=== PATIENT | female | born 2000 | race Caucasian/White ===

== ENCOUNTER 2020-06-23 12:45 | Outpatient (CLI) | payer OTHER, SELFPAY ==
--- NOTE | ~2020-06-23 | US_ITS ---
EXAMINATION: US pelvic complete w TV DATE: 06/23/2020 13:55 INDICATION: Pelvic pain during menstruation Comparison:No prior studies for comparison. TECHNIQUE: Multiple transabdominal and endovaginal sonographic images of the pelvis performed. FINDINGS: The uterus measures 8.4 x 4.4 x 5.5 cm. Uterus is retroverted. The endometrial complex domenico ures 12 mm. The right ovary measures 7.3 x 4.6 x 6.8 cm and the left ovary measures 3 x 2.1 x 3.6 cm. There is a small amount of free fluid in the pelvis. The right ovary there are 2 hypoechoic masses, largest domenico uring 4.6 x 4.1 x 3.9 cm, likely hemorrhagic cyst. Smaller mass measures 3.1 x 2 x 2.5 cm, also likel y hemorrhagic cyst. IMPRESSION: 1. Multiple right ovarian masses, both containing low level internal echoes, most likely hemorrhagic cysts. The largest measures 4.6 cm greatest dimension. Consider follow-up ultrasound in 4-6 weeks to assess for resolution. 2: Mild endometrial thickening. Reviewed, dictated and finalized at location A. LOCK OPERATOR IMPRESSION: 1. Multiple right ovarian masses, both containing low level internal echoes, mo st likely hemorrhagic cysts. The largest measures 4.6 cm greatest dimension. Co nsider follow-up ultrasound in 4-6 weeks to assess for resolution. 2: Mild endometrial thickening.
== END 2020-06-23 12:46 ==
PROVIDERS: Visit Provider Physician Assistant
DX: N83.9 Noninflammatory disorder of ovary, fallopian tube and broad ligament, unspecified (principal)
CPT/HCPCS: 76830; 76856

== ENCOUNTER 2020-07-06 20:18 | Emergency (ER) | payer OTHER, SELFPAY ==
[2020-07-06] VITALS (12 sets, daily range): BP systolic 102–104; BP diastolic 57–72; PULSE 66–76; RESP 20; TEMP 36.7; O2SAT 95–100
[2020-07-06 20:33] LABS: Basophils Percent Auto 0.4 % (0.2-1.2); Eosinophils Absolute Auto 0.1 K/mm3 (0-0.3); Eosinophils Percent Auto 1.2 % (0-4.4); Hematocrit 34.6 % (37.0-47.0); Hemoglobin 11.5 g/dL (12.0-15.0); Immature Granulocyte Absolute 0.02 K/mm3 (0.00-0.031); Immature Granulocyte Percent A 0.3 % (0-0.5); Lymphocytes Absolute Auto 2.79 K/mm3 (0.9-3.2); Lymphocytes Percent Auto 36.3 % (18.3-44.2); Mean Corpuscular HGB Conc 33.2 g/dl (32-36); Mean Corpuscular Hemoglobin 29.6 pg (26-34); Mean Corpuscular Volume 89.2 fl (80-100); Mean Platelet Volume 9.4 fl (7.4-10.4); Monocytes Absolute Auto 0.4 K/mm3 (0.1-0.6); Monocytes Percent Auto 4.6 % (2.6-8.5); Neutrophils Absolute Auto 4.4 K/mm3 (1.3-6.7); Neutrophils Percent Auto 57.2 % (45.5-73.1); Platelet Count Result 292 k/mm3 (150-375); Red Blood Count 3.88 M/mm3 (4.2-5.4); White Blood Count 7.7 K/mm3 (4.5-10.0)
--- NOTE | 2020-07-06 20:35 | ED.ABDPAIN ---
HPI - Abdominal Pain General Chief Complaint: Abdominal Pain Stated Complaint: vomiting and abd pain after sex Time Seen by Provider: 07/06/20 20:32 History of Present Illness HPI narrative: 19 yo female presents to the ED for abdominal pain. TThe pain started immediately following sex. It is severe. Located in the right ovary . No radiation. Associated with nausea. She has had this pain before and was told that it was probably an ovarian cyst. She has not tried anything for the pain. No diarrhea, constipation, dysuria, vaginal discharge. She is currently on her period. She had a recent ultrasound done for this pain and has not gotten the results. Related Data Allergies Allergy/AdvReac Type Severity Reaction Status Date / Time No Known Allergies Allergy Verified 07/06/20 20:21 Review of Systems Review of Systems: All systems reviewed & are unremarkable except as noted in HPI and below Constitutional: Constitutional: Denies chills and Denies fever(s) Cardiovascular: Cardiovascular: Denies chest pain Respiratory: Respiratory: Denies dyspnea Gastrointestinal: Gastrointestinal: Reports abdominal pain, Denies constipation, Denies diarrhea, Reports nausea and Denies vomiting Genitourinary: Genitourinary: Denies dysuria and Denies vaginal discharge Musculoskeletal: Musculoskeletal: Denies back pain Neurologic: Reports headache(s), Denies numbness and Denies weakness PMFSH Past Medical History Medical History (Updated 07/11/20 @ 02:41 by Kuldeep Pastrana MD) Healthy adult Social History Social History (Updated 07/11/20 @ 02:41 by Kuldeep Pastrana MD) Gender identity (if verbalized by the patient): Female Sexual Orientation (if Verbalized by the Patient): Straight or Heterosexual Exam Const: General: healthy appearing, no acute distress and alert Nutritional Appearance: well nourished Orientation/consciousness: patient oriented x3 HENMT: Head: normal to inspection Neck: Neck: normal visual inspection Resp: Effort & Inspection: normal respiratory effort Auscultation: clear to auscultation bilaterally Cardio: Rate: regular rate Rhythm: regular rhythm GI: Inspection: non-distended GI Palp: Yes Soft to palpation, Yes Tenderness to palpation present (GI) (periumbilical and suprapubic), Yes Guarding due to palpation present (GI) and No Rebound tenderness present Skin: General skin exam: normal color Neuro: General: patient oriented x3, moves all extremities and CN's II-XI intact bilaterally Speech: normal speech Gait exam (Neuro): Normal gait present Extrem: General: normal to inspection and no edema Psych: Appearance: grossly normal and well kempt Mental Status: mental status grossly normal Course Vital Signs Vital signs: Vital Signs Temperature 36.7 C 07/06/20 20:48 Pulse Rate 66 07/06/20 20:48 Respiratory Rate 20 07/06/20 20:48 Blood Pressure 103/57 L 07/06/20 20:48 Pulse Oximetry 100 07/06/20 20:48 Temperature 36.7 C 07/06/20 20:48 Pulse Rate 76 07/06/20 21:12 Respiratory Rate 20 07/06/20 20:48 Blood Pressure 102/60 07/06/20 23:01 Pulse Oximetry 95 07/06/20 23:01 MDM - Abdominal Pain MDM Narrative Medical decision making narrative: She likely ruptured a cyst during sex. Vitals stable. Pain improving. No concern for significant hemorrhage. Differential Diagnosis Differential diagnosis: Likely acute appendicitis, calculus of kidney, pancreatitis and other (uti, ovarian cyst) Medical Records Attestation: I reviewed the patient's medical records. Lab Data Attestation: I reviewed the patient's lab results. Result diagrams: 07/06/20 20:28 07/06/20 20:28 Labs: Lab Results 07/06/20 07/06/20 Range/Units 20:28 20:28 WBC 7.7 (4.5-10.0) K/mm3 RBC 3.88 L (4.2-5.4) M/mm3 Hgb 11.5 L (12.0-15.0) g/dL Hct 34.6 L (37.0-47.0) % MCV 89.2 (80-100) fl MCH 29.6 (26-34) pg MCHC 33.2 (32-36) g/dl R
[2020-07-06 20:46] LABS: Alanine Aminotransferase 10 U/L (4-35); Albumin Level 4.5 g/dL (3.7-5.6); Alkaline Phosphatase 45 U/L (45-116); Anion Gap 11 mmol/L (8-16); Aspartate Amino Transferase 24 U/L (14-36); Bilirubin,Total 0.3 mg/dL (0.2-1.3); Blood Urea Nitrogen 13 mg/dL (8-21); Calcium 9.7 mg/dL (8.9-10.7); Carbon Dioxide 26 mmol/L (22-30); Chloride 104 mmol/L (98-107); Estimated Glomerular Filt Rate > 60; Glucose 106 mg/dL (65-105); Lipase 68 U/L (23-300); Potassium 4.1 mmol/L (3.4-5.0); Sodium 141 mmol/L (134-143)
[2020-07-06] MEDS: KETOROLAC 30 MG/ML VIAL (*BKC) IV PUSH (21:27)
[2020-07-06] MEDS: MORPHINE SULFATE (*CRX) 2 MG/ML INJ IV PUSH (21:27)
== END 2020-07-06 23:19 | disposition home or self-care (01) ==
PROVIDERS: Emergency Medicine; Emergency Provider Emergency Medicine
DX: N83.201 Unspecified ovarian cyst, right side (principal)
CPT/HCPCS: 36415; 80053; 83690; 85025; 96374; 96375; 99284; J1885; J2270

== ENCOUNTER 2020-11-03 14:50 | Outpatient (CLI) | payer OTHER, SELFPAY ==
--- NOTE | ~2020-11-03 | US_ITS ---
EXAMINATION: US pelvic complete w TV DATE: 11/03/2020 15:24 INDICATION: Right adnexal mass TECHNIQUE: Multiple transabdominal and endovaginal sonographic images of the pelvis were obtained. COMPARISON: 06/23/2020 FINDINGS: The uterus measures 8.1 x 4.0 x 4.3 cm. The endometrial complex measures 7 mm. The right ov pam measures 5.2 x 5.4 x 4.7 cm. There is a stable 4.6 x 3.4 cm homogeneous right adnexal mass with l ow-level internal echoes. A second mass with similar sonographic features described on the comparison ultrasound is no longer identified. The left ovary measures 2.8 x 3.7 x 2.7 cm. There is normal vasc ular flow in the ovaries. There is no free fluid in the pelvis. IMPRESSION: 1. Stable 4.6 cm right adnexal mass with sonographic features suggestive of an endometrioma. Recommen dation is for follow-up ultrasound in one year if not surgically removed. Reviewed, dictated and finalized at location A. IMPRESSION: 1. Stable 4.6 cm right adnexal mass with sonographic features suggestive of an endometrioma. Recommendation is for follow-up ultrasound in one year if not laure gically removed.
== END 2020-11-03 14:51 | disposition home or self-care (01) ==
PROVIDERS: PCP Physician Assistant; Visit Provider Physician Assistant
DX: N83.201 Unspecified ovarian cyst, right side (principal); N83.9 Noninflammatory disorder of ovary, fallopian tube and broad ligament, unspecified
CPT/HCPCS: 76830; 76856

== ENCOUNTER 2021-02-07 12:04 | Emergency (ER) | payer OTHER, SELFPAY ==
[2021-02-07 12:08] VITALS: BP 103/70; PULSE 80; RESP 18; TEMP 36.6; O2SAT 99
--- NOTE | 2021-02-07 12:58 | ED.FEMALEGU ---
HPI - Female Genitourinary General Chief complaint: Urogenital-Female Stated complaint: endometriosis is causing something to come out of Time Seen by Provider: 02/07/21 12:08 History of Present Illness HPI Narrative: Patient is a 20-year-old female who presents ER with concerns for uterine prolapse. Reports she has had a couple episodes where something is falling out of her vagina and she has to push it back up. Occasionally this will help her urinate. No urinary frequency urgency or dysuria. Occasionally has some vaginal spotting since getting her Depo shot recently. Reports some mild discharge but no significant increase. No fevers or chills or sweats. No pelvic pain. Patient does have history of endometriosis and reports a large endometrial tumor on her right ovary. Related Data Home Medications Medication Instructions Recorded Confirmed terbinafine HCl 250 mg PO 02/07/21 Allergies Allergy/AdvReac Type Severity Reaction Status Date / Time No Known Allergies Allergy Verified 02/07/21 12:18 Review of Systems Review of Systems: All systems reviewed & are unremarkable except as noted in HPI and below Constitutional: Constitutional: Denies chills and Denies fatigue Gastrointestinal: Gastrointestinal: Denies abdominal pain, Denies nausea and Denies vomiting Genitourinary: Genitourinary: Reports abnormal vaginal bleeding, Denies nocturia, Denies dysuria, Denies pelvic pain and Reports vaginal discharge PMFSH Past Medical History Medical History (Updated 02/07/21 @ 13:24 by Clark Mercedes MD) Healthy adult Social History Social History (Updated 07/11/20 @ 02:41 by Kuldeep Pastrana MD) Gender identity (if verbalized by the patient): Female Exam Narrative: Exam Narrative: GENERAL: Well-appearing, well-nourished, and in no acute distress. HEAD: Normocephalic, atraumatic. CHEST: Clear to auscultation. No respiratory distress. HEART: Regular rate and rhythm. Normal peripheral pulses. ABDOMEN: Soft, nontender, nondistended. : Normal external genitalia. Speculum exam reveals retained tampon. After evacuation cervix appears mildly irritated but no additional discharge or bleeding. EXTREMITIES: Normal range of motion. No edema. SKIN: Warm, dry, no rash. NEURO: Alert and oriented x3. PSYCH: Normal mood and affect. Course Course Emergency Course: Patient resting comfortably. Tampon removed from vagina. Discharge home. Patient reports she has an appointment with Dr. Shukla to establish care with gynecology in the near future. Vital Signs Vital signs: Vital Signs Temperature 97.9 F 02/07/21 12:08 Pulse Rate 80 02/07/21 12:08 Respiratory Rate 18 02/07/21 12:08 Blood Pressure 103/70 02/07/21 12:08 Pulse Oximetry 99 02/07/21 12:08 Temperature 97.9 F 02/07/21 12:08 Pulse Rate 80 02/07/21 12:08 Respiratory Rate 18 02/07/21 12:08 Blood Pressure 103/70 02/07/21 12:08 Pulse Oximetry 99 02/07/21 12:08 Discharge Plan Discharge Clinical Impression: Retained tampon Patient Disposition: Home, Self-Care Condition: Stable Instructions: Vaginal Discharge (ED) Additional Instructions: You are being started on metronidazole for potential bacterial vaginosis related to retained tampon. Return to the ER if you have worsening pelvic pain, you develop fever over 100.4 ?F, you have additional concerns. Prescriptions: New metronidazole 500 mg tablet 500 mg PO Q12H Qty: 14 RF: 0 No Action terbinafine HCl 250 mg tablet 250 mg PO RF: 0 Follow-up/Referrals: Ally Shukla MD [Physician] - 1 Week UNKNOWN,DOCTOR [Primary Care Provider] -
[2021-02-07 13:34] VITALS: BP 107/68; PULSE 79; RESP 17; O2SAT 99
== END 2021-02-07 13:35 | disposition home or self-care (01) ==
PROVIDERS: Emergency Provider Emergency Medicine
DX: T19.2XXA Foreign body in vulva and vagina, initial encounter (principal)
CPT/HCPCS: 99283

== ENCOUNTER 2021-09-08 18:55 | Emergency (ER) | payer OTHER, SELFPAY ==
--- NOTE | 2021-09-08 18:58 | ED.EYEPROB ---
HPI - Eye Problem General Chief complaint: Eye Problems Stated complaint: right eye Time Seen by Provider: 09/08/21 18:59 Source: patient, RN notes reviewed and old records reviewed Mode of arrival: ambulatory Limitations: no limitations History of Present Illness HPI Narrative: 20-year-old female presents to the [facility] with complaints of right eye pain and swelling to the Upper lid. States the discomfort started last night. No change in vision or blurry vision. Denies headaches. Swelling noted to the right upper eyelid MD chief complaint: eye pain and eye redness Related Data Home Medications Medication Instructions Recorded Confirmed medroxyprogesterone mg IM 09/08/21 Allergies Allergy/AdvReac Type Severity Reaction Status Date / Time No Known Allergies Allergy Verified 02/07/21 12:18 Review of Systems Review of Systems: All systems reviewed & are unremarkable except as noted in HPI and below Constitutional: Constitutional: Reports no additional constitutional complaints, Denies chills and Denies fever(s) Eyes: Eyes: Reports as per HPI, Denies change in vision, Denies diplopia, Denies itchy eyes, Denies loss of vision, Reports requires corrective lenses (wear glasses) and Denies photophobia ENT: Reports system reviewed and no additional complaints, except as documented Cardiovascular: Cardiovascular: Reports no additional cardiovascular complaints Respiratory: Respiratory: Reports no additional respiratory complaints Gastrointestinal: Gastrointestinal: Reports no additional gastrointestinal complaints Musculoskeletal: Musculoskeletal: Reports no additional musculoskeletal complaints Integumentary/Breasts: Skin/Breast: Reports system reviewed and no additional complaints, except as docu Neurologic: Reports system reviewed and no additional complaints, except as documented Psychiatric: Psychiatric: Reports no additional psychiatric complaints Allergic/Immunologic: Allergic/Immunologic: Reports no additional allergic/immunologic complaints [facility] Past Medical History Medical History Healthy adult Social History Social History Gender identity (if verbalized by the patient): Female Sexual Orientation (if Verbalized by the Patient): Straight or Heterosexual Comments At the time of my signature, I reviewed and agree with the nursing past medical, surgical, social, and family history. There is no relevant family history pertinent to the patient complaint. Exam Const: General: healthy appearing, no acute distress and alert Nutritional Appearance: well nourished Orientation/consciousness: patient oriented x3 Limitations: no limitations HENMT: Head: normal to inspection Ears: external ears normal Eyes: Conjunctivae: conjunctival abnormality right conjunctival injection (right upper lateral with stye); without discharge Pupils: Equal, round and reactive pupils present Direct Ophthalmoscopy: no photophobia Neck: Neck: normal visual inspection, no lymphadenopathy and no meningeal signs Chest: Chest palpation & inspection: normal inspection of the chest Resp: Effort & Inspection: normal respiratory effort and no use of accessory muscles Auscultation: clear to auscultation bilaterally, no crackles, no rales, no rhonchi and no wheezes Cardio: Rate: regular rate Rhythm: regular rhythm Skin: General skin exam: normal color Rashes: no rashes Wounds: no wounds Neuro: General: patient oriented x3, moves all extremities, no meningeal signs and no focal motor deficits Speech: normal speech Gait exam (Neuro): Normal gait present Extrem: General: normal to inspection Psych: Appearance: grossly normal and well kempt Mental Status: mental status grossly normal Affect: normal affect Attitude: cooperative Thought content: Yes Normal thought content present Course Course Emergency Course: Dischar
[2021-09-08 19:00] VITALS: BP 101/57; PULSE 69; RESP 16; TEMP 36.8; O2SAT 100
== END 2021-09-08 19:11 | disposition home or self-care (01) ==
PROVIDERS: Emergency Provider Nurse Practitioner
DX: H00.011 Hordeolum externum right upper eyelid (principal); N80.9 Endometriosis, unspecified
CPT/HCPCS: 99213; G0463

== ENCOUNTER 2021-10-26 09:42 | Outpatient (CLI) | payer OTHER, SELFPAY ==
--- NOTE | ~2021-10-26 | US_ITS ---
EXAMINATION: US abdomen complete DATE: 10/26/2021 10:32 INDICATION: Abdominal pain TECHNIQUE: Multiple grayscale and Doppler ultrasound images of the abdomen were obtained. COMPARISON: The pancreatic head and body are normal in appearance. The pancreatic tail is not visual ized. Abdominal aorta is normal. The visualized proximal to mid inferior vena cava is normal. Liver h as normal echogenicity and contour, with a smooth surface. No liver lesion identified. No intrahepati c biliary duct dilation suspected. Portal venous flow was seen in the hepatopetal, normal direction a nd has normal Doppler waveform. The gallbladder is normal in appearance. There is no cholelithiasis. The common bile duct measures 3 mm, which is normal. Sonographic Avery sign was reported as negativ e by the roustabout pusher. There is normal renal contour and echogenicity bilaterally. The right kidney me asures 11.3 x 4.6 x 4.0 cm and the left 11.9 x 5.5 x 4.4 cm. There are no focal renal lesions identi fied. There is no hydronephrosis. Normal spleen measuring 10.3 cm maximal length. FINDINGS: Normal abdominal ultrasound. IMPRESSION: 1. Reviewed, dictated and finalized at location A. IMPRESSION: 1.
--- NOTE | ~2021-10-26 | XR_ITS ---
EXAMINATION: XR knee RT 3V DATE: 10/26/2021 10:07 INDICATION: Right knee pain. TECHNIQUE: 3 views of right knee including standing views were obtained. COMPARISON: Right tibia and fibula radiographs 12/25/2016 FINDINGS: Bone alignment is normal. No fracture. Joint spaces are well maintained. There is no knee j oint effusion. IMPRESSION: 1. Normal right knee. Reviewed, dictated and finalized at location A. IMPRESSION: 1. Normal right knee.
--- NOTE | ~2021-10-26 | XR_ITS ---
EXAMINATION: XR shoulder RT min 2V DATE: 10/26/2021 10:07 INDICATION: Right shoulder pain. TECHNIQUE: 4 views of right shoulder were obtained. COMPARISON: None. FINDINGS: Bone alignment is normal. No fracture. Joint spaces are well maintained. IMPRESSION: 1. Normal right shoulder. Reviewed, dictated and finalized at location A. IMPRESSION: 1. Normal right shoulder.
== END 2021-10-26 09:43 | disposition home or self-care (01) ==
LOC: ANHIMG 09:46
PROVIDERS: PCP Physician Assistant; Visit Provider Physician Assistant
DX: R10.9 Unspecified abdominal pain (principal); M25.569 Pain in unspecified knee; M25.511 Pain in right shoulder
CPT/HCPCS: 73030; 73562; 76700

== ENCOUNTER 2021-12-08 10:45 | Outpatient (RCR) | payer OTHER, SELFPAY ==
--- NOTE | 2021-10-21 10:03 | PTOPEVAL ---
PHYSICAL THERAPY EVALUATION AND PLAN OF CARE Thank you for referring Dina Pemberton to [facility].? The patient is scheduled to be seen for therapy? 2x/week for 3 weeks. Please review, sign, date and return this plan of care CRUZITO. I agree with and certify that the following plan of care is medically necessary. Referring Physician Date Attending Provider: Samantha Tolbert, PA Evaluation Diagnosis right knee pain, right shoulder pain Onset 5 years Subjective Information States that she has been Query Text:As Reported By Patient/ dealing with right knee pain Family for at least 5 years and it hurts daily and will sometimes give out. 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 Started about 7-8 months ago. States she does get headaches with shoulder pain - will wake up with sore shoulder blades and middle back and it will go up to her neck Self Report Pain Assessment Right Knee(s) Reported Pain Level 2 Radicular Pain Location irritated Pain Frequency Chronic,Continuous Lowest Pain Intensity 2 Greatest Pain Intensity 6 Pain Aggravating Factors Walking,Weight Bearing/ Standing Pain Behaviors None Right Shoulder(s) Reported Pain Level 6 Pain Description Aching,Tightness Lowest Pain Intensity 0 Greatest Pain Intensity 7 Pain Aggravating Factors Lifting Pain Score Pain Score 6,2: Self Report Interventions Used Interventions Used By Clinicians Exercise,Mobilization Other Alleviating Interventions icy hot Upper Extremity Range of Motion Scapular/ Shoulder Range of Motion Right Shoulder Flexion - Active 152 Shoulder Abduction - Active 155 Shoulder Medial Rotation - Active T6 Query Text:Reach Behind the Back Scapular/Shoulder Range of Motion pain at end range motion, no Comments painful arc; ligament laxity noted Lower Extremity Range of Motion General Lower Extremity Range of Motion Reason Not Measured WNL/Left,WNL/Right Gross Lower Extremity Range of Motion ligament laxity noted Comments Lower Extremity Muscle Strengt
--- NOTE | 2021-11-12 16:23 | PTOPEVAL ---
PHYSICAL THERAPY PROGRESS REPORT Thank you for referring Dina Pemberton to [facility].? The patient is scheduled to be seen for therapy? 1x/week for 4 weeks. Please review, sign, date and return this plan of care CRUZITO. I agree with and certify that the following plan of care is medically necessary. Referring Physician Date Attending Provider: Samantha Tolbert, PA Diagnosis right knee pain, right shoulder pain Onset 5 years Subjective Information Throughout the whole process Query Text:As Reported By Patient/ she states that the shoulder Family is improving and does have a small amount of pain today. The last several days the right knee has really been bothering her. It does tend to have flair ups and she thinks that might be the case with significant weather changes over the last several days. Heat has felt good for the right. Self Report Pain Assessment Right Knee(s) Reported Pain Level 3 Pain Description Throbbing Additional Pain Comments states knee was an 8/10 this morning. Right Shoulder(s) Reported Pain Level 4 Pain Description Soreness,Tightness Pain Score Pain Score 3,4: Self Report Scapular/ Shoulder Range of Motion Right Shoulder Flexion - Active 160 Shoulder Abduction - Active 160 Shoulder Medial Rotation - Active T6 Hip Strength Right Hip Flexion Strength 5 Normal Knee Strength Right Knee Flexion Strength 4+ Good + Knee Extension Strength 4+ Good + Upper Extremity Muscle Strength Testing Scapular/Shoulder Right Scapular Retraction - Middle Trapezius 3 Fair Scapular Retraction - Lower Trapezius 3 Fair Shoulder Flexion Strength 4 Good Shoulder Extension Strength 4 Good Shoulder Medial Rotation Strength 4+ Good + Shoulder Lateral Rotation Strength 4+ Good + Muscle Length Testing Jovani Test Shortened Muscles Short (R) Ilial Tib Band Piriformis w/Hip Flexion >90 Degrees (R) Moderate Tightness,(L) Moderate Tightness Left Hamstring Length -20 Query Text:(90 - 90 Position) Right Hamstring Length -20 Query Text:(90 - 90 Position) Head/C-Spine Posture Forward Head Thoracic Spine Posture Flattened Shoulder Posture (L) Rounded,(R) Rounded,(L) Forward,(R) Forward Scapula Posture (R) Protracted Hip Posture
--- NOTE | 2021-12-08 11:25 | PTOPEVAL ---
Physical Therapy Discharge Note Thank you for referring Dina Pemberton to [facility].? Yajaira is a 21 yo female presenting to outpatient physical therapy with chronic right shoulder pain and chronic right knee pain. She has attended 11 therapy visits from 10/21/21 to 12/08/21. As a result of skilled therapy services she reports improved pain of the shoulder and knee, improved function and improved ability to perform daily task. She however remains limited with cont WHITE, knee giving out and increased pain with increased daily activities. She demonstrates improved right LE strength, improved shoulder ROM, and improved right shoulder strength. She demonstrates improved right LE control and position with functional movement. But cont poor scapular stability and position in seated position and with reaching task. She has been provided a HEP and demonstrates compliance and verbalizes understanding. She has reached maximal potential with skilled therapy services at this time. Recommend she f/u with her doctor due to continued pain and limitations with daily task. Will DC skilled PT services at this time. Please review, sign, date and return this discharge summary CRUZITO. I agree with and certify that the following plan of care is medically necessary. Referring Physician Date Attending Provider: Samantha Tolbert, PA Diagnosis right knee pain, right shoulder pain Onset 5 years Subjective Information REports her knee is more Query Text:As Reported By Patient/ painful today for unknown Family reason. Does feel the knee has increased flair ups related to weather changes. She is performing HEP daily. 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 She cont to regular WHITE with currently in front of head, but will intermittently be located neck/head region. Reports the knee will give out every other week. Happens more with turning vs walking forward. Pain Assessment Right Knee(s) Reported Pain Level 3 Pain Description Pressure,Tightness Pain Frequency Chronic,Continuous Lowest Pain Intensity 0 Greatest Pain Intensity 10 Pain Aggravating Factors Walking,Weight Bearing/ Standing Right Shoulder(s) Reported Pain Level 2 Pain Description Soreness,Tightness Lowest Pain Intensity 0 Greatest Pain Intensity 7 Upper Extremity Range of Motion Scapular/ Shoulder Range of Motion Right Shoulder Flexion - Active 155
== END 2021-12-08 14:03 | disposition home or self-care (01) ==
LOC: ANHPT 10:45
PROVIDERS: PCP Physician Assistant; Visit Provider Physician Assistant
DX: M25.511 Pain in right shoulder (principal); M25.561 Pain in right knee
CPT/HCPCS: 97110; 97112; 97140; 97162; 97530

== ENCOUNTER 2021-12-10 16:32 | Outpatient (CLI) | payer OTHER, SELFPAY ==
--- NOTE | ~2021-12-10 | US_ITS ---
EXAMINATION: US pelvic complete w TV DATE: 12/10/2021 17:49 INDICATION: Pelvic and perineal pain. TECHNIQUE: Multiple transabdominal and transvaginal sonographic images of the pelvis were obtained. COMPARISON: Ultrasound 11/03/2020 FINDINGS: TRANSABDOMINAL ULTRASOUND: The uterus measures 8.1 x 4.4 x 5.4 cm. There is physiologic free fluid in the pelvis. TRANSVAGINAL ULTRASOUND: The endometrial complex measures 4 mm in thickness. The right ovary measures 3.0 x 2.8 x 1.9 cm. The left ovary measures 2.1 x 1.9 x 2.7 cm. There is normal vascular flow in the ovaries. IMPRESSION: 1. Normal pelvis. Reviewed, dictated and finalized at location A. IMPRESSION: 1. Normal pelvis.
== END 2021-12-10 16:33 | disposition home or self-care (01) ==
PROVIDERS: PCP Physician Assistant; Visit Provider Obstetrics & Gynecology
DX: R10.2 Pelvic and perineal pain (principal)
CPT/HCPCS: 76830; 76856

== ENCOUNTER 2023-09-18 17:48 | Emergency (ER) | payer OTHER, SELFPAY ==
[2023-09-18 17:53] VITALS: BP 115/83; PULSE 80; RESP 16; TEMP 36.6; O2SAT 100
--- NOTE | 2023-09-18 18:06 | ED.GENADULT ---
HPI - General Adult General Chief complaint: Upper Respiratory Infection Stated complaint: Congestion Source: patient, RN notes reviewed and old records reviewed Mode of arrival: ambulatory Limitations: no limitations History of Present Illness HPI narrative: 22-year-old female presents to [facility] with complaints , congestion, myalgia, fatigue, nausea, diarrhea this started 3-5 days ago. Patient states started with myalgia 5 days ago and has progressed cents patient states his only vomited 2 times in the 5 days and is having 3-4 diarrhea stools daily.. patient has not taking anything for symptoms. Related Data Allergies Allergy/AdvReac Type Severity Reaction Status Date / Time docusate [From Colace] Allergy Mild Hives Verified 05/05/23 14:51 Review of Systems Constitutional: Constitutional: Reports no additional constitutional complaints, Reports body ache(s), Denies chills, Reports fatigue, Denies fever(s) and Denies headache(s) Eyes: Eyes: Reports no additional eye complaints and Denies blurry vision ENT: Reports system reviewed and no additional complaints, except as documented, Denies vertigo, Denies dizziness, Denies ear discharge, Denies otalgia, Denies facial pain, Denies headache(s), Reports nasal congestion, Denies nasal discharge, Denies sinus pain, Reports sinus pressure and Denies sore throat Cardiovascular: Cardiovascular: Reports no additional cardiovascular complaints, Denies chest pain, Denies chest pain at rest, Denies rapid heart rate and Denies dyspnea Respiratory: Respiratory: Reports no additional respiratory complaints, Denies chest congestion, Reports cough, Denies pain on inspiration, Denies pain with cough and Denies dyspnea Gastrointestinal: Gastrointestinal: Denies abdominal pain, Reports diarrhea, Reports nausea and Reports vomiting Integumentary/Breasts: Skin/Breast: Denies rash Neurologic: Reports system reviewed and no additional complaints, except as documented, Denies vertigo, Denies dizziness and Denies headache(s) Endocrine: Endocrine: Denies fatigue PMFSH Past Medical History Medical History Anxiety Encounter for surveillance of implantable subdermal contraceptive Endometriosis Healthy adult Nexplanon insertion Surveillance for Depo-Provera contraception Surgical History Surgical History History of ovarian cystectomy Laparoscopic ovarian cystectomy Family History Family History Other Malignant tumor of stomach Social History Social History Smoking status: Former smoker Tobacco type: e-cigarettes/vaping Alcohol intake: never Substance use: current Substance use type: marijuana Lack of Transportation: No Lack of Food: Never True Current Housing: I Have Housing Concerned About Future Housing: No Difficulty Paying Gas/Electric Bills: No Difficulty Paying for Meds: No Currently Unemployed: Decline to Answer Education: High School Diploma/GED Difficulty w/ Childcare or Family Care: No Living arrangements: with family Gender identity (if verbalized by the patient): Female Sexual Orientation (if Verbalized by the Patient): Straight or Heterosexual Comments At the time of my signature, I reviewed and agree with the nursing past medical, surgical, social, and family history. There is no relevant family history pertinent to the patient complaint. Exam Const: General: cooperative, healthy appearing, no acute distress and well nourished Nutritional Appearance: well nourished Orientation/consciousness: patient oriented x3 Limitations: no limitations HENMT: Head: normal to inspection and normocephalic Ears: external ears normal, TM's normal bilaterally, EAC's normal and mastoids normal Face/Nose/Sinus: normal facial exam
== END 2023-09-18 18:21 | disposition home or self-care (01) ==
PROVIDERS: Emergency Provider Registered Nurse
DX: A08.4 Viral intestinal infection, unspecified (principal); Z87.891 Personal history of nicotine dependence; Z20.822 Contact with and (suspected) exposure to COVID-19
CPT/HCPCS: 87426; 87804; 99213; G0463

== ENCOUNTER 2024-03-08 13:39 | Outpatient (CLI) | payer MEDICAID, SELFPAY ==
[2024-03-08 14:13] LABS: Basophils Percent Auto 0.3 % (0.2-1.2); Eosinophils Absolute Auto 0.1 K/mm3 (0-0.3); Eosinophils Percent Auto 0.7 % (0-4.4); Hematocrit 34.6 % (37.0-47.0); Hemoglobin 11.4 g/dL (12.0-15.0); Immature Granulocyte Absolute 0.05 K/mm3 (0.00-0.031); Immature Granulocyte Percent A 0.5 % (0-0.5); Lymphocytes Absolute Auto 2.41 K/mm3 (0.9-3.2); Lymphocytes Percent Auto 22.5 % (18.3-44.2); Mean Corpuscular HGB Conc 32.9 g/dl (32-36); Mean Platelet Volume 9.5 fl (7.4-10.4); Monocytes Absolute Auto 0.7 K/mm3 (0.1-0.6); Monocytes Percent Auto 6.3 % (2.6-8.5); Neutrophils Absolute Auto 7.5 K/mm3 (1.3-6.7); Neutrophils Percent Auto 69.7 % (45.5-73.1); Platelet Count Result 305 k/mm3 (150-375); Red Blood Count 3.93 M/mm3 (4.2-5.4); Red Cell Distribution Width 12.3 % (11.5-14.5); White Blood Count 10.7 K/mm3 (4.5-10.0)
[2024-03-08 15:10] LABS: HIV 1/2 Ab P24 Ag Result Negative (Negative)
[2024-03-08 15:23] LABS: Hepatitis B Surface Antigen Negative (Negative); Rubella IgG Antibody 37.5 IU/ML
[2024-03-09 08:25] LABS: Rapid Plasma Reagin Non-Reactive (NonReactive)
[2024-03-09 12:03] LABS: Varicella IgG Antibody <135.00 index
[2024-03-09 14:39] LABS: CMV IgG Antibody <0.60 U/mL
== END 2024-03-08 13:40 | disposition home or self-care (01) ==
LOC: ANHLAB 13:41
PROVIDERS: Visit Provider Student in an Organized Health Care Education/Training Program
DX: N94.89 Other specified conditions associated with female genital organs and menstrual cycle (principal)
CPT/HCPCS: 36415; 84702; 85025; 86592; 86644; 86703; 86747; 86762; 86787; 86850; 86900; 86901; 87086; 87340; G0432

== ENCOUNTER 2024-06-17 14:36 | Observation (INO) | payer OTHER, SELFPAY ==
--- NOTE | ~2024-06-17 | US_ITS ---
EXAMINATION: US abdomen limited DATE: 06/17/2024 16:02 INDICATION: RUQ U/S due to pain- check GB and appendix TECHNIQUE: Multiple grayscale and Doppler ultrasound images of limited portions of the abdomen were o btained. COMPARISON: None available. FINDINGS: The visualized portions of the pancreas are normal. The liver is normal with normal echogen icity and echotexture. No surface nodularity. Normal hepatopetal flow in the main portal vein. The ga llbladder is partially contracted, with 4 mm gallbladder wall thickness, no pericholecystic fluid or stones. The common bile duct measures 4 mm. There was no sonographic Avery sign. Mild dilation of th e right renal pelvis. Examination of the right lower quadrant revealed no abnormality, noting that th e appendix was not confidently visualized. IMPRESSION: Mild bladder wall thickening, likely due to partial contraction. No cholelithiasis, pericholecystic f luid, or sonographic Avery's sign. Mild right pelviectasis. Appendix not visualized. Reviewed, dictated and finalized at location [facility] [employer] IMPRESSION: Mild bladder wall thickening, likely due to partial contraction. No cholelithia sis, pericholecystic fluid, or sonographic Avery's sign. Mild right pelviectasis. Appendix not visualized.
[2024-06-17 14:53] VITALS: PULSE 72; O2SAT 100
[2024-06-17 14:56] VITALS: PULSE 89; O2SAT 100
[2024-06-17 14:57] VITALS: BP 117/64; PULSE 82; PULSE 88; RESP 16; TEMP 36.4; O2SAT 100; BMI 27.7
--- NOTE | 2024-06-17 14:57 | PC.NURSE ---
Pt also denies vaginal bleeding or leakage of fluid.
--- NOTE | 2024-06-17 14:57 | OBADM ---
This patient, Dina Pemberton, admitted to the OB room 116 for observation for abdominal pain. Patient/family oriented to hospital policies and general routines including ID bracelet, bed and alarms, visiting hours, pain management, procedures, bathroom and other care routines, personal items, smoking policy, room service/diet, and visiting hours. Patient/Family are encouraged to report perceived risks to care and to ask questions if they do not understand what they are told or what they should do.
[2024-06-17 15:01] VITALS: PULSE 84; O2SAT 100
--- NOTE | 2024-06-17 15:04 | PC.NURSE ---
Dr. Yeh informed of this 22 4/7 wk G1 pt that reports constant RUQ sharp pain since Tuesday evening that ranges in pain from a 3 to 7. Some intermittent nausea, no emesis. Has had a normal appetite with last meal at 1300. Has had normal bowel movements- last one today. Afebrile and denies fever or chills at home. FHT's 140. Orders received for labs and U/S.
[2024-06-17 15:06] VITALS: PULSE 86; O2SAT 100
[2024-06-17 15:09] VITALS: PULSE 84; O2SAT 100
[2024-06-17 15:18] LABS: Basophils Percent Auto 0.2 % (0.2-1.2); Eosinophils Absolute Auto 0.2 K/mm3 (0-0.3); Eosinophils Percent Auto 1.3 % (0-4.4); Hemoglobin 10.6 g/dL (12.0-15.0); Immature Granulocyte Absolute 0.17 K/mm3 (0.00-0.031); Immature Granulocyte Percent A 1.3 % (0-0.5); Lymphocytes Absolute Auto 1.87 K/mm3 (0.9-3.2); Lymphocytes Percent Auto 14.5 % (18.3-44.2); Mean Corpuscular HGB Conc 34.2 g/dl (32-36); Mean Corpuscular Hemoglobin 31.1 pg (26-34); Mean Corpuscular Volume 90.9 fl (80-100); Mean Platelet Volume 9.4 fl (7.4-10.4); Monocytes Percent Auto 7.8 % (2.6-8.5); Neutrophils Absolute Auto 9.7 K/mm3 (1.3-6.7); Neutrophils Percent Auto 74.9 % (45.5-73.1); Platelet Count Result 271 k/mm3 (150-375); Red Blood Count 3.41 M/mm3 (4.2-5.4); White Blood Count 12.9 K/mm3 (4.5-10.0)
[2024-06-17 15:29] LABS: Alanine Aminotransferase 39 U/L (6-35); Albumin Level 3.7 g/dL (3.5-5.1); Alkaline Phosphatase 42 U/L (38-126); Anion Gap 7 mmol/L (4-12); Aspartate Amino Transferase 29 U/L (14-36); Bilirubin,Total 0.2 mg/dL (0.2-1.3); Blood Urea Nitrogen 10 mg/dL (7-17); Calcium 9.4 mg/dL (8.4-10.2); Carbon Dioxide 24 mmol/L (22-30); Chloride 104 mmol/L (98-107); Estimated CRCL calculation 202 ml/min; Estimated Glomerular Filt Rate > 60; Glucose 91 mg/dL (65-110); Potassium 4.2 mmol/L (3.4-5.0); Sodium 135 mmol/L (137-145)
[2024-06-17 15:39] LABS: Add Urine Microscopic? YES; Appearance Urine Cloudy (Clear); Bacteria Urine None Seen /hpf; Bilirubin Urine Negative (Negative); Blood Urine Negative (Negative); Color Urine Yellow (Yellow); Glucose Urine UA Negative (Negative); Ketones Urine Negative (Negative); Leukocyte Esterase Ur Negative LEU/UL (Negative); Nitrate Urine Negative (Negative); Non Pathogenic Casts 0-2; Protein Urine Negative (Negative); RBC Urine 0-2 /hpf (0-2); Specific Grav Ur 1.016 (1.001-1.035); Squamous Epithelial Cell Urine None Seen /hpf (Few); WBC Urine 0-5 /hpf (0-3); pH Urine 7.5 (5.0-9.0)
--- NOTE | 2024-06-17 16:15 | PC.NURSE ---
Dr. Yeh informed of lab and U/S results. Pt currently rating pain a 2 out of 10, but states it was worse during the U/S exam. Order received for discharge and comfort measures for pt at home.
--- NOTE | 2024-06-19 07:34 | P.PNOB_ITS ---
OB - Triage/Final Diagnosis Visit Information Date of evaluation: 06/17/24 Reason for evaluation: other (abdominal pain) Comments/Additional reasons for admission: I have assessed the risk for this patient, Dina Jimenez Nilay, and determined that she would benefit from observation care. Evaluation Laboratory results: Laboratory Tests 06/17/24 15:12 WBC 12.9 H RBC 3.41 L Hgb 10.6 L Hct 31.0 L MCV 90.9 MCH 31.1 MCHC 34.2 RDW 13.0 Plt Count 271 MPV 9.4 Immature Gran % (Auto) 1.3 H Neut % (Auto) 74.9 H Lymph % (Auto) 14.5 L [place] % (Auto) 7.8 Eos % (Auto) 1.3 Baso % (Auto) 0.2 Lymph # (Auto) 1.87 [place] # (Auto) 1.0 H Eos # (Auto) 0.2 Baso # (Auto) 0.0 Abs Immat Gran (auto) 0.17 H Absolute Neuts (auto) 9.7 H Absolute Nucleated RBC 0.000 Nucleated RBC % 0.0 Sodium 135 L Potassium 4.2 Chloride 104 Carbon Dioxide 24 Anion Gap 7 BUN 10 Creatinine 0.40 L Estim Creat Clear Calc 202 Estimated GFR > 60 Glucose 91 Calcium 9.4 Total Bilirubin 0.2 AST 29 ALT 39 H Alkaline Phosphatase 42 Total Protein 7.0 Albumin 3.7 Urine Color Yellow Urine Appearance Cloudy H Urine pH 7.5 Ur Specific [place] 1.016 Urine Protein Negative Urine Glucose (UA) Negative Urine Ketones Negative Ur Blood (Man) Negative Urine Nitrate Negative Urine Bilirubin Negative Urine Urobilinogen 1.0 Leukocyte Esterase Rfl Negative Urine RBC 0-2 Urine WBC 0-5 Ur Squamous Epith Cells None seen Urine Bacteria None seen Urine Casts 0-2
== END 2024-06-17 16:31 | disposition home or self-care (01) ==
PROVIDERS: Admitting Provider Student in an Organized Health Care Education/Training Program; Visit Provider Student in an Organized Health Care Education/Training Program
DX: O26.892 Other specified pregnancy related conditions, second trimester (principal); R10.9 Unspecified abdominal pain; Z3A.22 22 weeks gestation of pregnancy
CPT/HCPCS: 36415; 76705; 80053; 81001; 85025; G0378; G0379

== ENCOUNTER 2024-07-27 10:11 | Outpatient (CLI) | payer OTHER, SELFPAY ==
[2024-07-27 11:51] LABS: Basophils Absolute Auto 0.1 K/mm3 (0.0-0.1); Basophils Percent Auto 0.4 % (0.2-1.2); Eosinophils Absolute Auto 0.1 K/mm3 (0-0.3); Eosinophils Percent Auto 1.1 % (0-4.4); Hematocrit 32.8 % (37.0-47.0); Hemoglobin 10.9 g/dL (12.0-15.0); Lymphocytes Absolute Auto 1.71 K/mm3 (0.9-3.2); Lymphocytes Percent Auto 12.9 % (18.3-44.2); Mean Corpuscular HGB Conc 33.2 g/dl (32-36); Mean Corpuscular Hemoglobin 30.7 pg (26-34); Mean Corpuscular Volume 92.4 fl (80-100); Mean Platelet Volume 9.6 fl (7.4-10.4); Monocytes Percent Auto 7.7 % (2.6-8.5); Neutrophils Absolute Auto 9.9 K/mm3 (1.3-6.7); Neutrophils Percent Auto 74.9 % (45.5-73.1); Platelet Count Result 277 k/mm3 (150-375); Red Blood Count 3.55 M/mm3 (4.2-5.4); White Blood Count 13.2 K/mm3 (4.5-10.0)
[2024-07-27 12:02] LABS: Glucose 1 Hour PP 50gm Dose 95 mg/dL
[2024-07-27 12:39] LABS: Rapid Plasma Reagin Non-Reactive (NonReactive)
[2024-07-27 12:44] LABS: HIV 1/2 Ab P24 Ag Result Negative (Negative)
== END 2024-07-27 10:12 | disposition home or self-care (01) ==
LOC: ANHLAB 10:13
PROVIDERS: PCP Family Medicine; Visit Provider Obstetrics & Gynecology
DX: Z34.90 Encounter for supervision of normal pregnancy, unspecified, unspecified trimester (principal)
CPT/HCPCS: 36415; 82947; 85025; 86592; 86703; G0432

== ENCOUNTER 2024-08-18 14:44 | Outpatient (RCR) | payer OTHER, SELFPAY ==
[2024-08-18 15:24] VITALS: BP 121/70; PULSE 97
== END 2024-11-16 23:59 | disposition home or self-care (01) ==
LOC: ANHOBOP 14:44
PROVIDERS: PCP Obstetrics & Gynecology; Visit Provider Obstetrics & Gynecology
DX: O36.0130 Maternal care for anti-D [Rh] antibodies, third trimester, not applicable or unspecified (principal); Z3A.31 31 weeks gestation of pregnancy
CPT/HCPCS: 59025

== ENCOUNTER 2024-09-09 12:12 | Observation (INO) | payer OTHER, SELFPAY ==
--- OUTSIDE RECORDS SUMMARY | 2024-09-09 12:22 | XMS_ITS | Clinical Summary ---
Author Organization [facility] Address [address] [place] [address] Phone Care Team Providers Care Retail Reset Merchandiser Name Role Phone Quintin Maria MD Primary Care Provider Allergies Active Allergy Reactions Criticality Noted Date Comments Docusate Rash 03/16/2024 Medications naproxen (NAPROSYN) 500 MG Tablet Take 1 Tablet by mouth 2 times daily as needed for Mild or more severe pain. 20 Tablet 12/20/2023 Active Social History Tobacco Use Types Packs/Day Years Used Date Smoking Tobacco: Never Assessed Estimated Date of Delivery Comme nts Yes 10/19/2024 Sex and Gender Information Value Date Recorded Sex Assigned at Not on file Legal Sex Female 9:34 AM CDT Gender Identity Not on file Sexual Orientation Not on file Last Filed Vital Signs Vital Sign Reading Time Taken Comments Blood Pressure 124/60 03/16/2024 9:45 PM CDT Pulse 71 03/16/2024 9:45 PM CDT Temperature 36.8 C (98.2 F) 03/16/2024 7:09 PM CDT Respiratory Rate 18 03/16/2024 9:45 PM CDT Oxygen Saturation 100% 03/16/2024 9:45 PM CDT Inhaled Oxygen Concentration - - Weight 73 kg (161 lb) 03/16/2024 7:09 PM CDT Height 180.3 cm (5' 11 ) 03/16/2024 7:09 PM CDT Body Mass Index 22.45 03/16/2024 7:09 PM CDT Plan of Treatment Health Maintenance Due Date Last Done Comments Hepatitis C Virus (HCV) Screening 2000 TdaP Immunization 2000 Human Papillomavirus (HPV) Immunization (1 - 3-dose series) 10/26/2015 Meningococcal B Immunization (2 of 2 - Bexsero SCDM 2-dose series) 09/02/2019 03/02/2019 Pap Smear 2021 Influenza Immunization (#1) 2024 SARS-COV-2 Immunization (1 - 2023- season) 2024 Respiratory Syncytial Virus (RSV) Immunization (Adult) (1 - Risk 1-dose series) 08/24/2024 Hepatitis B Immunization Completed 002, 01/24/2001, 2000 Pneumococcal Immunization Combined Aged Out 04/21/2004, 07/04/2001, 03/31/2001, Additional history exists No longer eligible based on patient's age to complete this topic Meningococcal Immunization (ACWY) Completed 03/02/2019 Rotavirus Immunization Aged Out No lo nger eligible based on patient's age to complete this topic Insurance [place]ICAID [place] Care Teams Retail Reset Merchandiser Relationship Specialty Start Date End Date Quintin Maria MD [address] [place] [address] [place] [address] PCP - General Family Medicine 12/20/23
[2024-09-09 12:28] VITALS: BMI 32.3
--- NOTE | 2024-09-09 12:28 | OBADM ---
This patient, Dina Pemberton, admitted to the OB room OB Post 116 for observation. Patient/family oriented to hospital policies and general routines including ID bracelet, bed and alarms, visiting hours, pain management, procedures, bathroom and other care routines, personal items, smoking policy, room service/diet, and visiting hours. Patient/Family are encouraged to report perceived risks to care and to ask questions if they do not understand what they are told or what they should do.
[2024-09-09 12:30] VITALS: BP 114/72; PULSE 109
[2024-09-09 12:42] LABS: Add Urine Microscopic? YES; Appearance Urine Clear (Clear); Bilirubin Urine Negative (Negative); Blood Urine Negative (Negative); Color Urine Yellow (Yellow); Glucose Urine UA Negative (Negative); Ketones Urine 1+ mg/dL (Negative); Leukocyte Esterase Ur Negative LEU/UL (Negative); Nitrate Urine Negative (Negative); Protein Urine Negative (Negative); Specific Grav Ur 1.017 (1.001-1.035); pH Urine 7.5 (5.0-9.0)
[2024-09-09 12:45] VITALS: BP 113/68; PULSE 105
[2024-09-09 13:00] VITALS: BP 109/65; PULSE 91
[2024-09-09 13:15] VITALS: BP 110/64; PULSE 89
[2024-09-09 13:30] VITALS: BP 114/70; PULSE 96
[2024-09-09 13:57] VITALS: BP 114/72
--- NOTE | 2024-09-10 14:13 | P.PNOB_ITS ---
OB - Triage/Final Diagnosis Visit Information Reason for evaluation: threatened labor Comments/Additional reasons for admission: I have assessed the risk for this patient, Dina Jimenez Pemberton, and determined that she would benefit from observation care. Evaluation Laboratory results: Laboratory Tests 09/09/24 12:35 Urine Color Yellow Urine Appearance Clear Urine pH 7.5 Ur Specific [place] 1.017 Urine Protein Negative Urine Glucose (UA) Negative Urine Ketones 1+ H Ur Blood (Man) Negative Urine Nitrate Negative Urine Bilirubin Negative Urine Urobilinogen 2.0 H Leukocyte Esterase Rfl Negative
== END 2024-09-09 13:45 | disposition home or self-care (01) ==
LOC: ANHOBPP 12:18
PROVIDERS: Obstetrics & Gynecology; Admitting Provider Obstetrics & Gynecology; Visit Provider Obstetrics & Gynecology
DX: O47.03 False labor before 37 completed weeks of gestation, third trimester (principal); Z3A.34 34 weeks gestation of pregnancy
CPT/HCPCS: 59025; 81001; G0378; G0379

== ENCOUNTER 2024-09-28 16:15 | Observation (INO) | payer OTHER, SELFPAY ==
--- NOTE | 2024-09-28 16:20 | OBADM ---
This patient, Dina Pemberton, admitted to the OB room OB Post 115 for observation. Patient/family oriented to hospital policies and general routines including ID bracelet, bed and alarms, visiting hours, pain management, procedures, bathroom and other care routines, personal items, smoking policy, room service/diet, and visiting hours. Patient/Family are encouraged to report perceived risks to care and to ask questions if they do not understand what they are told or what they should do.
[2024-09-28 16:45] VITALS: BP 121/73; PULSE 108
[2024-09-28 17:00] VITALS: BP 121/74; PULSE 102
[2024-09-28 17:15] VITALS: BP 119/63; PULSE 105
[2024-09-28 17:30] VITALS: BP 122/68; PULSE 98
[2024-09-28 17:50] VITALS: BMI 34.0
--- NOTE | 2024-10-01 07:31 | PM.OBTRLD ---
OB - Triage/Final Diagnosis Visit Information Date of evaluation: 10/26/24 Reason for evaluation: other (fall) Comments/Additional reasons for admission: I have assessed the risk for this patient, Dina Pemberton, and determined that she would benefit from observation care.
== END 2024-09-28 17:50 | disposition home or self-care (01) ==
LOC: ANHOBPP 10-01 07:20
PROVIDERS: Admitting Provider Student in an Organized Health Care Education/Training Program; Visit Provider Student in an Organized Health Care Education/Training Program
DX: O26.893 Other specified pregnancy related conditions, third trimester (principal); W19.XXXA Unspecified fall, initial encounter; Z3A.37 37 weeks gestation of pregnancy
CPT/HCPCS: G0378; G0379

== ENCOUNTER 2024-10-14 17:08 | Inpatient (IN) | payer OTHER, SELFPAY ==
[2024-10-14] VITALS (15 sets, daily range): BP systolic 112–130; BP diastolic 65–81; PULSE 97–121; TEMP 36.3–36.6; BMI 34.7
--- NOTE | 2024-10-14 17:08 | LDADM ---
This patient, Dina Pemberton, was admitted to Labor/Delivery/Recovery 108 on 10/14/24 at 17:08. Plans for labor, pain management and were discussed with patient. Patient/family oriented to hospital policies and general routines including ID bracelet, bed and alarms, visiting hours, pain management, procedures, bathroom and other care routines, personal items, smoking policy, room service/diet and guest tray routines, infant security routines, and visiting hours. Patient/Family are encouraged to report perceived risks to care and to ask questions if they do not understand what they are told or what they should do. See OBIX for further documentation.
--- OUTSIDE RECORDS SUMMARY | 2024-10-14 17:11 | XMS_ITS | Clinical Summary ---
Author Organization [facility] [address] [place] [address] Care Team Providers Care Investment Sales Assistant Name Role Phone Samantha Tolbert Primary Care Provider [phone] Allergies No known active allergies Medications ibuprofen (ADVIL,MOTRIN) 800 mg tablet Take 800 mg by mouth 2 (two) times a day 01/14/2021 Active Active Problems Problem Noted Date Diagnosed Date Vasovagal syncope Encounters Date Type Department Care Team Description 07/27/2024 Orders Only [facility] Health Information Management [address] [place] [id number] Quintin Maria MD from Last 3 Months Immunizations Immunization Administration Dates Next Due DTaP 05/18/2006, 2,07/04/2001,03/31/2001, 01/24/2001 Hep A, Unspecified 10/17/2009 Hep B / HiB 01/24/2001 Hep B, Adolescent or Pediatric 09/20/2001,2000 HiB 05/22/2002,07/04/2001,03/31/2001 IPV 05/18/2006,05/22/2002,03/31/2001 ,01/24/2001 Influenza, Unspecified 04/06/2024(Deferred: Marissa ent Refused) MMR 05/22/2002,11/22/2001 MMRV 05/18/2006 Meningococcal B, OMV (Bexsero) 03/02/2019 Meningococcal MCV4P (Menactra) 03/02/2019 Pneumococcal Conjugate 7-Valent 04/21/2004,07/04,03/31/2001,01/24/2001 Varicella 04/21/2004 Medical History Medical History Date Comments Anxiety Anemia Depression Syncope Anemia Family History Medical History Relation Name Comments Fainting Brother Migraines Father Mitral valve prolapse Mother Fainting Sister Migraines Sister Relation Name Status Comments Brother Father Mother Alive Sister Social History Tobacco Use Types Packs/Day Years Used Date Smoking Tobacco: Never Smokeless Tobacco: Never AUDIT-C Answer Date Recorded Q1: How often do you have a drink containing alc ohol? 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 Gender Identity Not on file Sexual Orientation Not on file Obstetrics History Last Filed Vital Signs Vital Sign Reading Time Taken Comments Blood Pressure 113/65 05/26/2021 3:05 PM CDT Pulse 85 05/13/2021 10:48 AM CDT Temperature - - Respiratory Rate 16 02/23/2021 2:49 PM CDT Oxygen Saturation 98% 05/13/2021 10:48 AM CDT Inhaled Oxygen Concentration - - Weight 60.8 kg (134 lb) 05/13/2021 10:48 AM CDT Height 181.6 cm (5' 11.5 ) 05/13/2021 10:48 AM C DT Body Mass Index 18.43 05/13/2021 10:48 AM CDT Plan of Treatment Not on file Procedures Procedure Name Priority Date/Time Associated Diagnosis Comments SCAN - LABS 07/27/2024 from Last 3 Months Results * SCAN - LABS (07/27/2024) Quintin Husam Maria MD Final R esult from Last 3 Months Insurance [facility] Care Teams Investment Sales Assistant Relationship Specialty Start Date End Date Samantha Tolbert PA [address] [place] [address] PCP - General Physician Box Car Checker 12/19/20
--- OUTSIDE RECORDS SUMMARY | 2024-10-14 17:11 | XMS_ITS | Referral Summary ---
Author Organization [facility] [address] [place] [address] Care Team Providers Care Equipment Superintendent Name Role Phone Samantha Tolbert Primary Care Provider [phone] Encounters Date Type Department Care Team Description 07/27/2024 Orders Only [facility] Health Information Management [address] [place] [id number] Quintin Maria MD from Last 3 Months Allergies No known active allergies Medications ibuprofen (ADVIL,MOTRIN) 800 mg tablet Take 800 mg by mouth 2 (two) times a day 01/14/2021 Active Active Problems Problem Noted Date Diagnosed Date Vasovagal syncope Immunizations Immunization Administration Dates Next Due DTaP 05/18/2006, 2,07/04/2001,03/31/2001, 01/24/2001 Hep A, Unspecified 10/17/2009 Hep B / HiB 01/24/2001 Hep B, Adolescent or Pediatric 09/20/2001,2000 HiB 05/22/2002,07/04/2001,03/31/2001 IPV 05/18/2006,05/22/2002,03/31/2001 ,01/24/2001 Influenza, Unspecified 04/06/2024(Deferred: Marissa ent Refused) MMR 05/22/2002,11/22/2001 MMRV 05/18/2006 Meningococcal B, OMV (Bexsero) 03/02/2019 Meningococcal MCV4P (Menactra) 03/02/2019 Pneumococcal Conjugate 7-Valent 04/21/2004,07/04,03/31/2001,01/24/2001 Varicella 04/21/2004 Social History Tobacco Use Types Packs/Day Years [...] on file 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
--- OUTSIDE RECORDS SUMMARY | 2024-10-14 17:11 | XMS_ITS | Clinical Summary ---
Author Organization [facility] Address [address] [place] [address] Phone Care Team Providers Care Knitting Inspector Name Role Phone Quintin Maria MD Primary [...] Immunization (#1) 2024 SARS-COV-2 Immunization (1 - season) 2024 Hepatitis B Immunization Completed 002, 01/24/2001, 2000 Pneumococcal Immunization Combined Aged Out 04/21/2004, 07/04/2001, 03/31/2001, Additional history exists No longer eligible based on patient's age to complete this topic Meningococcal Immunization (ACWY) Completed 03/02/2019 Respiratory Syncytial Virus (RSV) Immunization (Adult) (No Doses Required) Completed Rotavirus Immunization Aged Out No lo nger eligible based on patient's age to complete this topic Insurance [place] Care Teams Knitting Inspector Relationship Specialty Start Date End Date Quintin Maria MD 2 [facility] [address] [address] PCP - General Family Medicine 12/20/23
[2024-10-14 18:09] LABS: Basophils Percent Auto 0.3 % (0.2-1.2); Eosinophils Absolute Auto 0.1 K/mm3 (0-0.3); Eosinophils Percent Auto 0.9 % (0-4.4); Hematocrit 35.9 % (37.0-47.0); Immature Granulocyte Absolute 0.21 K/mm3 (0.00-0.031); Immature Granulocyte Percent A 1.5 % (0-0.5); Lymphocytes Absolute Auto 1.73 K/mm3 (0.9-3.2); Lymphocytes Percent Auto 12.5 % (18.3-44.2); Mean Corpuscular HGB Conc 33.4 g/dl (32-36); Mean Corpuscular Hemoglobin 29.7 pg (26-34); Mean Corpuscular Volume 88.9 fl (80-100); Mean Platelet Volume 9.8 fl (7.4-10.4); Monocytes Absolute Auto 1.1 K/mm3 (0.1-0.6); Monocytes Percent Auto 7.6 % (2.6-8.5); Neutrophils Absolute Auto 10.7 K/mm3 (1.3-6.7); Neutrophils Percent Auto 77.2 % (45.5-73.1); Platelet Count Result 286 k/mm3 (150-375); Red Blood Count 4.04 M/mm3 (4.2-5.4); Red Cell Distribution Width 13.2 % (11.5-14.5); White Blood Count 13.9 K/mm3 (4.5-10.0)
[2024-10-14] MEDS: DINOPROSTONE 10 MG VAG INSERT VAGINAL (18:14)
[2024-10-14 18:52] LABS: Syphilis IgG/IgM Antibody Negative (Negative)
[2024-10-14 19:05] LABS: HIV 1/2 Ab P24 Ag Result Negative (Negative)
[2024-10-14] MEDS: FAMOTIDINE 20 MG/2 ML VIAL IV PUSH (19:35)
[2024-10-15] VITALS (177 sets, daily range): BP systolic 91–132; BP diastolic 45–103; PULSE 60–121; RESP 16–18; TEMP 36.4–37; O2SAT 94–100
[2024-10-15] MEDS: LACTATED RINGERS 1,000 ML 125 ML IV CONT (06:58)
--- NOTE | 2024-10-15 06:59 | P.HP_ITS ---
H&P: HPI History of Present Illness Date/Time: 10/15/24 07:00 Chief Complaint: Elective IOL Narrative: Dina is a 23yo @ 39.5wks who presented overnight for elective IOL. She is s/p cervidil. She reports good movement. No VB or LOF. Her is complicated by: - H/o endometriosis - Varicella non-immune Review of Systems Constitutional: Constitutional: Denies chills, Denies fever(s) and Denies headache(s) Eyes: Eyes: Denies change in vision ENT: Denies headache(s) Cardiovascular: Cardiovascular: Denies chest pain and Denies dyspnea Respiratory: Respiratory: Denies dyspnea Genitourinary: Genitourinary: Denies abnormal vaginal bleeding and Denies vaginal discharge Neurologic: Denies headache(s) Psychiatric: Psychiatric: Denies anxiety and Denies depression [facility] Past Medical History Medical History Pelvic congestion syndrome Suppression of menses Encounter for surveillance of implantable subdermal contraceptive Nexplanon insertion Endometriosis Anxiety Surveillance for Depo-Provera contraception Healthy adult Surgical History Surgical History History of ovarian cystectomy Laparoscopic ovarian cystectomy Family History Family History Grandparent Malignant tumor of stomach Other Skin cancer Other Acute myocardial infarction Social History Social History Smoking status: Former smoker Tobacco type: e-cigarettes/vaping Alcohol intake: never Substance use: former Substance use type: marijuana Do You Feel Safe in your Home?: Yes Lack of Transportation: No Lack of Food: Never True Current Housing: I Have Housing Concerned About Future Housing: No Difficulty Paying Gas/Electric Bills: No Difficulty Paying for Meds: No Currently Unemployed: No Education: High School Diploma/GED Difficulty w/ Childcare or Family Care: No Living arrangements: with family Occupation/Education: occupation Additional occupation/education comments: [employer] Gender identity (if verbalized by the patient): Female Sexual Orientation (if Verbalized by the Patient): Straight or Heterosexual Spiritual care concerns: No Meds Home Medications and Allergies Home Medications ?Medication ?Instructions ?Recorded ?Confirmed ?Type vits no.126-ferrous fum 1 tablet PO DAILY #90 tabs 05/28/24 10/14/24 Rx 28 mg iron-folic acid 800 mcg tablet (Classic ) ferrous sulfate 325 mg (65 mg 325 mg PO DAILY 08/18/24 10/14/24 History iron) tablet famotidine 20 mg tablet 20 mg PO DAILY #30 tabs 09/21/24 10/11/24 Rx Allergies Allergy/AdvReac Type Severity Reaction Status Date / Time docusate (From Colace) Allergy Mild Hives Verified 10/14/24 18:11 Exam Const: General: cooperative, no acute distress and obese Nutritional Appearance: obese Orientation/consciousness: patient oriented x3 Resp: Effort & Inspection: normal respiratory effort Cardio: Rate: regular rate GI: GI Palp: No abdominal tenderness : Other: FHT's: 140's/ mod kera/ + accels/ no decels - cat 1 TOCO: ctxs q6min Cervix: 2/60/-3 Membranes: AROM, clear 0705 Presentation: cephalic Skin: General skin exam: normal color Neuro: General: patient oriented x3 Extrem: General: normal to inspection Psych: Appearance: grossly normal Affect: normal affect Attitude: cooperative Assessment and Plan Assessment and plan (1) Encounter for elective induction of labor: Code(s): Z34.90 - Encounter for supervision of normal , unspecified, unspecified trimester Status: Acute Plan - Admitted overnight for elective IOL, cervix favorable - AROM, clear 0705 - Continuous monitoring; currently reassuring - GBS negative - Anesthesia consult PRN pain
[2024-10-15] MEDS: OXYTOCIN 30 UNITS/NS 500 ML 30 UNITS/500 ML BAG 6 UNITS IV CONT (07:00)
[2024-10-15] MEDS: ONDANSETRON INJ 4 MG/2 ML VIAL IV PUSH (08:00)
[2024-10-15] MEDS: fentaNYL CITRATE INJ (*CRX) 100 MCG/2 ML VIAL IV PUSH (08:01)
[2024-10-15] MEDS: LACTATED RINGERS 1,000 ML 999 ML IV CONT (08:43)
--- NOTE | 2024-10-15 11:09 | WPDANESEPPF ---
Anes - Initial Pre Proc Eval Procedure: labor epidural Date/Time: 10/15/24 11:09 Surgeon: Ally Shukla MD Pre Op Diagnosis: labor pain Pre Op Diagnosis: IOL Patient Data Age: 23 Gender: F Height: 1.8 m Weight: 113.18 kg Last Vital Signs Temp 36.9 C 10/15/24 09:00 Pulse 84 10/15/24 11:00 BP 116/77 10/15/24 11:00 Pulse Ox 100 10/15/24 11:07 O2 Del Method Room Air 10/15/24 07:19 Allergies Allergy/AdvReac Type Severity Reaction Status Date / Time docusate (From Colace) Allergy Mild Hives Verified 10/14/24 18:11 Home Medications ?Medication ?Instructions ?Recorded ?Confirmed ?Type vits no.126-ferrous fum 1 tablet PO DAILY #90 tabs 05/28/24 10/14/24 Rx 28 mg iron-folic acid 800 mcg tablet (Classic ) ferrous sulfate 325 mg (65 mg 325 mg PO DAILY 08/18/24 10/14/24 History iron) tablet famotidine 20 mg tablet 20 mg PO DAILY #30 tabs 09/21/24 10/11/24 Rx Laboratory Tests 10/14/24 17:50 WBC 13.9 H K/mm3 (4.5-10.0) RBC 4.04 L M/mm3 (4.2-5.4) Hgb 12.0 g/dL (12.0-15.0) Hct 35.9 L % (37.0-47.0) MCV 88.9 fl (80-100) MCH 29.7 pg (26-34) MCHC 33.4 g/dl (32-36) RDW 13.2 % (11.5-14.5) Plt Count 286 k/mm3 (150-375) MPV 9.8 fl (7.4-10.4) Immature Gran % (Auto) 1.5 H % (0-0.5) Neut % (Auto) 77.2 H % (45.5-73.1) Lymph % (Auto) 12.5 L % (18.3-44.2) [place] % (Auto) 7.6 % (2.6-8.5) Eos % (Auto) 0.9 % (0-4.4) Baso % (Auto) 0.3 % (0.2-1.2) Lymph # (Auto) 1.73 K/mm3 (0.9-3.2) [place] # (Auto) 1.1 H K/mm3 (0.1-0.6) Eos # (Auto) 0.1 K/mm3 (0-0.3) Baso # (Auto) 0.0 K/mm3 (0.0-0.1) Abs Immat Gran (auto) 0.21 H K/mm3 (0.00-0.031) Absolute Neuts (auto) 10.7 H K/mm3 (1.3-6.7) Absolute Nucleated RBC 0.000 K/mm3 (0.0-0.012) Nucleated RBC % 0.0 % (0.0-0.2) Syphilis IgG/IgM Ab Negative (Negative) HIV 1&2 Ab/P24 Ag 4thGn Negative (Negative) Blood Type O Positive Antibody Screen Negative Patient hx anesthesia problems: none Family hx anesthesia problems: none Results Review: All pre-operative results and documents have been reviewed as part of the pre-operative evaluation. [facility] Past Medical History Medical History Pelvic congestion syndrome Suppression of menses Encounter for surveillance of implantable subdermal contraceptive Nexplanon insertion Endometriosis Anxiety Surveillance for Depo-Provera contraception Healthy adult Surgical History Surgical History History of ovarian cystectomy Laparoscopic ovarian cystectomy Family History Family History Grandparent Malignant tumor of stomach Other Skin cancer Other Acute myocardial infarction Social History Social History Smoking status: Former smoker Tobacco type: e-cigarettes/vaping Alcohol intake: never Substance use: former Substance use type: marijuana Do You Feel Safe in your Home?: Yes Lack of Transportation: No Lack of Food: Never True Current Housing: I Have Housing Concerned About Future Housing: No Difficulty Paying Gas/Electric Bills: No Difficulty Paying for Meds: No Currently Unemployed: No Education: High School Diploma/GED Difficulty w/ Childcare or Family Care: No Living arrangements: with family Occupation/Education: occupation Additional occupation/education comments: [employer] Gender identity (if verbalized by the patient): Female Sexual Orientation (if Verbalized by the Patient): Straight or Heterosexual Spiritual care concerns: No Anes - Eval Final PreProcedure Day of Procedure 10/15/24 11:09 Patient weight: obese ASA classification: II Anesthetic plan: proceed Anesthesia type and monitoring: regional epidural and standard monitoring Results Review: All pre-operative results and documents have been reviewed as part of the pre-operative evaluation. Informed Consent: The patient's anesthetic plan and its attendant risks and benefits were discussed with the patient/family/POA. Questions were solicited and answers provided to the satisfaction of the patient/family/POA.
[2024-10-15] MEDS: METHYLERGONOVINE MALEATE 0.2 MG/ML VIAL (15:57)
--- NOTE | 2024-10-15 16:16 | P.PCNOB_ITS ---
OB - Vaginal Delivery Note Procedure Delivery date: 10/15/24 Events: Elective Induction of Labor Induction method: Per Cervidil Protocol Delivery augmentation: Rupture of Membranes and Pitocin Delivery monitor: External FHT and External Uterine Route of delivery: Episiotomy description: None Laceration Description: Perineal - 2nd Degree and Labial (right) Delivery repair: vicryl Quantitative Blood Loss (ml): 500 Anesthesia type: Epidural Disposition: Floor Complications: No immediate complications [place] Baby Date of : 10/15/24 Time of : 15:48 Gestational Age by Date: 39 (.5) Infant gender: Male Weight (pounds): 9 Weight (ounces): 2 presentation: vertex position: Left Occiput Anterior Placenta delivery description: Expressed Cord Vessel Description: 3 Vessels and Delayed Cord Clamping score one minute: 8 score five minutes: 9 Narrative: Edilberto rapidly progressed to complete dilation with strong desire to push. She pushed for approximately 15 minutes with good maternal effort. She delivered the head over intact perineum. No nuchal cord was palpated. She easily delivered the infant's shoulders and body without complication. The infant was immediately placed skin to skin and spontaneous cry. Delayed cord clamping was performed. The umbilical cord was then doubly clamped and cut. A segment of the cord was collected for cord gases. The remaining cord blood was collected for typing. With Pitocin running and gentle downward traction on the cord, the placenta delivered without complication. Was then noted that the Pitocin was not infusing as her IV was positional. She received Methergine 0.2 IM and her uterus was then noted to be firm with minimal bleeding. And the IV was then found to be working. She was examined and a second-degree perineal laceration was identified as well as a right labial laceration. The second- degree perineal laceration was repaired in the normal fashion using 2-0 Vicryl. The right labial laceration was repaired using 3-0 Vicryl. Bimanual massage was once again performed and multiple clots were removed and it was then identified that the IV had infiltrated. She was given Pitocin 10 milliunits IM and her uterus was then found to be firm with minimal bleeding while an IV was replaced. Sponge, lap, instrument, and needle counts were correct at the end of the procedure. Mom and baby both bonding in the birthing suite in stable condition.
[2024-10-15] MEDS: OXYTOCIN 10 UNITS/ML VIAL (16:19)
[2024-10-15] MEDS: OXYTOCIN 30 UNITS/NS 500 ML 30 UNITS/500 ML BAG 125 UNITS IV CONT (16:21)
[2024-10-15] MEDS: BENZOCAINE 20% AER SPR (*SP) 56 GM CAN 1 SPRAY TOPICAL (19:15)
[2024-10-15] MEDS: WITCH HAZEL 40 PADS 1 PAD TOPICAL (19:15)
[2024-10-15] MEDS: IBUPROFEN 600 MG TABLET PO (19:25)
--- NOTE | 2024-10-15 19:30 | PC.NURSE ---
Patient transferred to post room #280 via wheel chair. Support person present. Oriented to unit, room, information board, rooming in, admission packet and security measures. Patient verbalizes understanding.
[2024-10-15] MEDS: ACETAMINOPHEN 325 MG TABLET 650 MG PO (21:46)
[2024-10-16] MEDS: IBUPROFEN 600 MG TABLET PO ×3 (02:00→19:20)
[2024-10-16 04:50] LABS: Hematocrit 30.9 % (37.0-47.0); Hemoglobin 10.2 g/dL (12.0-15.0); Mean Corpuscular Hemoglobin 29.9 pg (26-34); Mean Corpuscular Volume 90.6 fl (80-100); Platelet Count Result 244 k/mm3 (150-375); Red Blood Count 3.41 M/mm3 (4.2-5.4); Red Cell Distribution Width 13.2 % (11.5-14.5); White Blood Count 15.8 K/mm3 (4.5-10.0)
--- NOTE | 2024-10-16 06:41 | P.PNOB_ITS ---
OB - PN: Subj Subjective Date/time seen: 10/16/24 06:41 Narrative: PPD#1 Charlie reports doing well today. 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 Her pain is controlled. She is tolerating regular diet, voiding, passing gas, and ambulating without issues. She is bottle feeding. She would like her son circumcised. OB - PN: Obj Data Labs 10/16/24 04:16 Labs: Laboratory Results - last 24 hr 10/16/24 04:16 WBC 15.8 H RBC 3.41 L Hgb 10.2 L Hct 30.9 L MCV 90.6 MCH 29.9 MCHC 33.0 RDW 13.2 Plt Count 244 MPV 10.0 OB - PN A/P Assessment and Plan (1) Normal vaginal delivery of first : Code(s): O80 - Encounter for full-term uncomplicated delivery Status: Acute Plan day: 1 Plan: routine care Comments: - PO pain meds - Regular diet - Ambulation and hydration encouraged - Circumcision performed w/o issue Time Spent With Patient Time: Total time spent is greater than 50% in coordination of care (as documented) at patient's floor/unit and/or counseling patient: Review of Systems 2 Constitutional: Constitutional: Denies chills, Denies fever(s) and Denies headache(s) Eyes: Eyes: Denies change in vision ENT: Denies dizziness and Denies headache(s) Cardiovascular: Cardiovascular: Denies chest pain, Denies palpitations and Denies dyspnea Respiratory: Respiratory: Denies cough and Denies dyspnea Gastrointestinal: Gastrointestinal: Denies nausea and Denies vomiting Neurologic: Denies dizziness and Denies headache(s) Endocrine: Endocrine: Denies palpitations Exam 2 Const: General: cooperative, comfortable and no acute distress O rientation/consciousness: patient oriented x3 Resp: Effort & Inspection: normal respiratory effort Auscultation: clear to auscultation bilaterally Cardio: Rate: regular rate GI: Inspection: non-distended GI Palp: No abdominal tenderness and Yes Soft to palpation Auscultation: normal bowel sounds : Other: fundus firm Skin: General skin exam: normal color Neuro: General: patient oriented x3 Extrem: General: normal to inspection Psych: Appearance: grossly normal Affect: normal affect Attitude: c ooperative
[2024-10-16 08:10] VITALS: BP 110/76; PULSE 100; RESP 16; TEMP 36.8; O2SAT 98
[2024-10-16 12:23] VITALS: BP 126/70; PULSE 94; RESP 16; TEMP 36.8; O2SAT 99
--- NOTE | 2024-10-16 15:02 | WPDANLDPN2 ---
Anes-Prog Note L&D Date/Time: 10/16/24 15:02 Comfortable throughout: labor and delivery Neuraxial method: epidural Epidural/Spinal procedure site: clean & non-tender Neuro status: Neuro function grossly intact. Cardiovascular status: normal Respiratory status: normal Airway patency: baseline Mental status: baseline Post-Op hydration status: normal Vital Signs: Last Vital Signs Temp 98.3 F 10/16/24 12:23 Pulse 94 10/16/24 12:23 Resp 16 10/16/24 12:23 BP 126/70 10/16/24 12:23 Pulse Ox 99 10/16/24 12:23 O2 Del Method Room Air 10/15/24 07:19 Pain score (VAS): 0/10 I/O: Intake & Output 10/15/24 10/16/24 10/16/24 23:59 07:59 15:59 Intake Total 500 Output Total 1150 Balance -650 Post-procedural complaints: none Patient feedback: Patient satisfied with anesthetic care.
[2024-10-16] MEDS: ACETAMINOPHEN 325 MG TABLET 650 MG PO (17:09)
[2024-10-16 19:20] VITALS: BP 126/78; PULSE 95; RESP 16; TEMP 36.6; O2SAT 99
[2024-10-17] MEDS: IBUPROFEN 600 MG TABLET PO ×2 (04:18→12:37)
[2024-10-17] MEDS: BENZOCAINE 20% AER SPR (*SP) 56 GM CAN 1 SPRAY TOPICAL (04:34)
[2024-10-17] MEDS: WITCH HAZEL 40 PADS 1 PAD TOPICAL (04:35)
--- NOTE | 2024-10-17 07:17 | PM.OBDSVD ---
DS: Admitting Diagnosis Discharge Date 10/17/24 Admitting Diagnosis Elective induction of labor DS: Discharge Diagnosis Discharge Diagnosis (1) Normal vaginal delivery of first : Code(s): O80 - Encounter for full-term uncomplicated delivery Status: Acute OB - DS: Summary OB Procedures : NST and Ultrasound OB Procedures Intrapartum: Spontaneous Vag Delivery OB Procedures: : None Peripartum Data Infant Delivery Method: Natural Vaginal Laceration Description: Perineal - 2nd Degree and Labial (right) Episiotomy description: None complications: none [place] 1: Gender: Male Disposition of : home Status at Discharge Functional status at discharge: independent ambulation Overall status at discharge: patient is back to baseline Time Spent with Patient Time attestation: Total time spent providing and/or coordinating discharge services: Exam Const: General: cooperative, comfortable, no acute distress and obese Nutritional Appearance: obese Orientation/consciousness: patient oriented x3 Resp: Effort & Inspection: normal respiratory effort Auscultation: clear to auscultation bilaterally Cardio: Rate: regular rate GI: Inspection: non-distended GI Palp: No abdominal tenderness and Yes Soft to palpation Auscultation: normal bowel sounds : Other: fundus firm Skin: General skin exam: normal color Neuro: General: patient oriented x3 Extrem: General: normal to inspection Psych: Appearance: grossly normal Affect: normal affect Attitude: cooperative Discharge Plan Discharge Attending physician on discharge: Ally Shukla Discharging Clinician: Ally Shukla Anticipated Discharge Date/Time: 10/17/24 11:00 Patient Disposition: Home, Self-Care Activity: may shower and pelvic rest Diet: regular Patient Instructions: Vaginal Delivery (DC) Patient Language: Mongolian Stand Alone Forms: General Discharge Information Follow-up/Referrals: Ally Shukla MD [Physician] - 4 Weeks Discharge Medications: New acetaminophen 325 mg Tablet 650 mg PO Q6H PRN (Reason: Mild Pain (1-3) Or Headache) Qty: 60 0RF ibuprofen 600 mg Tablet 600 mg PO Q6H PRN (Reason: Cramping) Qty: 40 0RF Continued ferrous sulfate 325 mg (65 mg iron) tablet 325 mg PO DAILY Classic 28 mg iron- 800 mcg tablet 1 tablet PO DAILY Qty: 90 2RF famotidine 20 mg tablet 20 mg PO DAILY Qty: 30 1RF Rx Instructions: take 1 dose daily for heartburn Date of admission: 10/14/24 17:08 Primary Care Provider: PHYSICIAN,MEDICAL CLAIMS ASSISTANT Admitting Provider: Ally Shukla Attending physician on admission: Ally Shukla Condition: Stable
[2024-10-17 07:55] VITALS: BP 126/78; PULSE 88; RESP 18; TEMP 37; O2SAT 100
[2024-10-19 09:34] VITALS: BP 124/69; PULSE 95; RESP 20; TEMP 37.1; O2SAT 100
== END 2024-10-17 13:15 | disposition home or self-care (01) | DRG 560 ==
LOC: ANHLDR 17:10 → ANHOB2 10-15 19:30
PROVIDERS: Admitting Provider Obstetrics & Gynecology; Visit Provider Obstetrics & Gynecology
DX: O99.892 Other specified diseases and conditions complicating childbirth (principal); Z37.0 Single live birth; Z3A.39 39 weeks gestation of pregnancy; N80.9 Endometriosis, unspecified; O70.1 Second degree perineal laceration during delivery
CPT/HCPCS: 36415; 85025; 85027; 86593; 86703; 86850; 86900; 86901; A9270; G0432; J2210; J2405; J2590; J2795; J3010; J7120

== ENCOUNTER 2024-11-05 11:16 | Emergency (ER) | payer OTHER, SELFPAY ==
--- NOTE | ~2024-11-05 | CT_ITS ---
CT pelvis w con Ordering provider: Sharon Mcmahan PA-C History: . labial abscess . Comparison: None. Technique: CT pelvis without oral and IV contrast. . Automated exposure control and iterative recons truction technique were employed. The dose-length product was 1010.60 mGy-cm. 100 mL Omnipaque 350 was given IV. Findings: BONES: No pelvic fracture or hip dislocation. Normal lumbar spine. The hip and sacroiliac joint space s are well maintained. SUPERFICIAL SOFT TISSUES: Slightly enlarged right inguinal lymph nodes. The largest measures 2.1 cm. No definite abscess is seen in the labial tissues. PELVIC ORGANS: The bladder is normal. Right ovarian cyst measuring 3.1 cm is noted. VISUALIZED BOWEL AND MESENTERY: Normal. No free air or free fluid. No lymphadenopathy. RETROPERITONEUM: Normal. IMPRESSION: No definite abscess formation seen in the labia. Slightly enlarged right inguinal lymph nodes. Reviewed, dictated and finalized at location A.
[2024-11-05 11:19] VITALS: BP 113/76; PULSE 60; RESP 18; TEMP 36.6; O2SAT 98
[2024-11-05 11:50] LABS: Basophils Absolute Auto 0.1 K/mm3 (0.0-0.1); Basophils Percent Auto 0.6 % (0.2-1.2); Eosinophils Absolute Auto 0.2 K/mm3 (0-0.3); Eosinophils Percent Auto 2.6 % (0-4.4); Hematocrit 38.5 % (37.0-47.0); Hemoglobin 12.1 g/dL (12.0-15.0); Immature Granulocyte Absolute 0.04 K/mm3 (0.00-0.031); Immature Granulocyte Percent A 0.4 % (0-0.5); Lymphocytes Absolute Auto 1.88 K/mm3 (0.9-3.2); Mean Corpuscular HGB Conc 31.4 g/dl (32-36); Mean Corpuscular Hemoglobin 28.3 pg (26-34); Mean Corpuscular Volume 90.2 fl (80-100); Mean Platelet Volume 9.6 fl (7.4-10.4); Monocytes Absolute Auto 0.7 K/mm3 (0.1-0.6); Monocytes Percent Auto 7.1 % (2.6-8.5); Neutrophils Absolute Auto 6.5 K/mm3 (1.3-6.7); Neutrophils Percent Auto 69.3 % (45.5-73.1); Platelet Count Result 412 k/mm3 (150-375); Red Blood Count 4.27 M/mm3 (4.2-5.4); Red Cell Distribution Width 12.6 % (11.5-14.5); White Blood Count 9.4 K/mm3 (4.5-10.0)
[2024-11-05 12:00] LABS: Alanine Aminotransferase 19 U/L (6-35); Albumin Level 4.1 g/dL (3.5-5.1); Alkaline Phosphatase 73 U/L (38-126); Anion Gap 10 mmol/L (4-12); Aspartate Amino Transferase 20 U/L (14-36); Bilirubin,Total 0.4 mg/dL (0.2-1.3); Blood Urea Nitrogen 12 mg/dL (7-17); CRP 3.9 mg/dL (<1.0); Calcium 9.2 mg/dL (8.4-10.2); Carbon Dioxide 23 mmol/L (22-30); Chloride 103 mmol/L (98-107); Estimated CRCL calculation 131 ml/min; Estimated Glomerular Filt Rate > 60; Glucose 104 mg/dL (65-110); Potassium 3.8 mmol/L (3.4-5.0); Sodium 136 mmol/L (137-145)
--- NOTE | 2024-11-05 12:21 | ED_ITS ---
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 Evaluated by her fibre technologist prior to arrival. Sent to the ER for further evaluation with blood work and imaging. Reports she was seen at another facility and started on an antibiotic a couple of days ago. She is unsure which antibiotic. She had been taking this with little relief, switched to Bactrim by her OB. She is 3 weeks from vaginal delivery. Related Data Home Medications ?Medication ?Instructions ?Recorded ?Confirmed ?Last Taken ?Type ferrous sulfate 325 mg (65 mg 325 mg PO DAILY 08/18/24 11/05/24 10/14/24 History iron) tablet Allergies Allergy/AdvReac Type Severity Reaction Status Date / Time docusate (From Colace) Allergy Mild Hives Verified 11/05/24 11:17 Review of Systems 2 Review of Systems: CONSTITUTIONAL: Denies fever GASTROINTESTINAL: Denies abdominal pain, nausea, vomiting, or diarrhea. GENITOURINARY: Denies dysuria All systems reviewed & are unremarkable except as noted in HPI and below PMFSH Past Medical History Medical History Pelvic congestion syndrome Suppression of menses Encounter for surveillance of implantable subdermal contraceptive Nexplanon insertion Endometriosis Anxiety Surveillance for Depo-Provera contraception Healthy adult Surgical History Surgical History History of ovarian cystectomy Laparoscopic ovarian cystectomy Family History Family History Grandparent Malignant tumor of stomach Other Skin cancer Other Acute myocardial infarction Social History Social History (Updated 11/05/24 @ 10:19 by Jose Shetty MA) Smoking status: Former smoker Tobacco type: e-cigarettes/vaping Alcohol intake: never Substance use: current Substance use type: marijuana Do You Feel Safe in your Home?: Yes Lack of Transportation: No Lack of Food: Never True Current Housing: I Have Housing Concerned About Future Housing: No Difficulty Paying Gas/Electric Bills: No Difficulty Paying for Meds: No Currently Unemployed: No Education: High School Diploma/GED Difficulty w/ Childcare or Family Care: No Living arrangements: with family Occupation/Education: occupation Additional occupation/education comments: [employer] Gender identity (if verbalized by the patient): Female Sexual Orientation (if Verbalized by the Patient): Straight or Heterosexual Spiritual care concerns: No Exam 2 Narrative: GENERAL: Well-appearing, well-nourished, and in no acute distress. HEAD: Normocephalic, atraumatic. EYES: EOMI. CHEST: Clear to auscultation. No respiratory distress. No wheezes rales or rhonchi HEART: Regular rate and rhythm. No murmur heard. Normal peripheral pulses. ABDOMEN: Soft, nontender, nondistended, normal active bowel sounds. EXTREMITIES: Normal range of motion. No edema. SKIN: Warm, dry, no rash. NEURO: No focal deficits. Alert and oriented x3. PSYCH: Normal mood and affect Course Course Emergency Course: Patient updated on workup and agrees with plan of care Consultations Consultation #1: Spoke with Dr. Shukla about patient and workup. Patient will be continued on Bactrim and should follow up in clinic Date: 11/05/24 Vital Signs Vital signs: Vital Signs Temperature 97.8 F 11/05/24 11:19 Pulse Rate 60 11/05/24 11:19 Respiratory Rate 18 11/05/24 11:19 Blood Pressure 113/76 11/05/24 11:19 Pulse Oximetry 98 11/05/24 11:19 Oxygen Delivery Room Air 11/05/24 11:19 Temperature 98.8 F 11/05/24 14:55 Pulse Rate 76 11/05/24 14:55 Respiratory Rate 18 11/05/24 14:55 Blood Pressure 130/74 11/05/24 14:55 Pulse Oximetry 100 11/05/24 14:55 Oxygen Delivery Room Air 11/05/24 11:19 MDM - Female Genitourinary MDM Narrative Medical decision making narrative: Patient presents the emergency department for possible labial abscess. Evaluated by her ACID PURIFICATION EQUIPMENT OPERATOR prior to arrival. She is afebrile and nontoxic appearing. Her vitals are stable. Cbc without leukocytosis. Metabolic panel without concerning findings. Urine with 1+ leuk esterase, 11-[address] pelvis is without abscess formation seen. Spoke with Dr. Shukla about patient and workup. Patient will be continued on Bactrim and should follow up in clinic. Patient was given warnings to return to the ER Differential Diagnosis Differential diagnosis: Likely other (abscess, cellulitis) Lab Data Attestation: I reviewed the patient's lab results. 11/05/24 11:36 11/05/24 11:36 Labs: Lab Results 11/05/24 11/05/24 Range/Units 11:36 12:37 WBC 9.4 (4.5-10.0) K/mm3 RBC 4.27 (4.2-5.4) M/mm3 Hgb 12.1 (12.0-15.0) g/dL Hct 38.5 (37.0-47.0) % MCV 90.2 (80-100) fl MCH 28.3 (26-34) pg MCHC 31.4 L (32-36) g/dl RDW 12.6 (11.5-14.5) % Plt Count 412 H D (150-375) k/mm3 MPV 9.6 (7.4-10.4) fl Immature Gran % (Auto) 0.4 (0-0.5) % Neut % (Auto) 69.3 (45.5-73.1) % Lymph % (Auto) 20.0 (18.3-44.2) % [place] % (Auto) 7.1 (2.6-8.5) % Eos % (Auto) 2.6 (0-4.4) % Baso % (Auto) 0.6 (0.2-1.2) % Lymph # (Auto) 1.88 (0.9-3.2) K/mm3 [place] # (Auto) 0.7 H (0.1-0.6) K/mm3 Eos # (Auto) 0.2 (0-0.3) K/mm3 Baso # (Auto) 0.1 (0.0-0.1) K/mm3 Abs Immat Gran (auto) 0.04 H (0.00-0.031) K/mm3 Absolute Neuts (auto) 6.5 (1.3-6.7) K/mm3 Absolute Nucleated RBC 0.000 (0.0-0.012) K/mm3 Nucleated RBC % 0.0 (0.0-0.2) % ESR 52 H (0-20) mm/hr Sodium 136 L (137-145) mmol/L Potassium 3.8 (3.4-5.0) mmol/L Chloride 103 (98-107) mmol/L Carbon Dioxide 23 (22-30) mmol/L Anion Gap 10 (4-12) mmol/L BUN 12 (7-17) mg/dL Creatinine 0.75 (0.7-1.0) mg/dL Estim Creat Clear Calc 131 ml/min Estimated GFR > 60 (59 - ) Glucose 104 (65-110) mg/dL Calcium 9.2 (8.4-10.2) mg/dL Total Bilirubin 0.4 (0.2-1.3) mg/dL AST 20 (14-36) U/L ALT 19 (6-35) U/L Alkaline Phosphatase 73 (38-126) U/L C-Reactive Protein 3.9 H (<1.0) mg/dL Total Protein 8.0 (6.3-8.2) g/dL Albumin 4.1 (3.5-5.1) g/dL Urine Color Dark yellow (Yellow) Urine Appearance Cloudy H (Clear) Urine pH 6.0 (5.0-9.0) Ur Specific [place] 1.029 (1.001-1.035) Urine Protein 1+ H (Negative) mg/dL Urine Glucose (UA) Negative (Negative) mg/dL Urine Ketones Trace H (Negative) mg/dL Ur Blood (Man) 2+ H (Negative) Urine Nitrate Negative (Negative) Urine Bilirubin Negative (Negative) Urine Urobilinogen 1.0 (<2.0) mg/dL Add Ur Microanalysis Reviewed Leukocyte Esterase Rfl 1+ H (Negative) LEIDY/UL Urine RBC 0-2 (0-2) /hpf Urine WBC 11-20 H (0-3) /hpf Ur Squamous Epith Cells Moderate (Few) /hpf Urine Bacteria Rare /hpf Urine Casts 6-10 POC Urine HCG, Qual Negative (Negative) Imaging Data Radiologist's impression: IMPRESSION: No definite abscess formation seen in the labia. Slightly enlarged right inguinal lymph nodes. Critical Care Time Critical Care Time Critical Care Time: No Discharge Plan Discharge Clinical Impression: Cellulitis of labia Patient Disposition: Home Condition: Stable Instructions: Antibiotic Form, Cellulitis (ED) Additional Instructions: Return if symptoms worsen or concerns: any increase in redness, swelling, pain or fever over 101 Take antibiotics (Bactrim) as directed. Clean wound with mild soapy water. Warm compresses 3 times a day for 20 minutes each Follow up with your ACID PURIFICATION EQUIPMENT OPERATOR in the next week for re-evaluation. They should be calling you to make a follow-up appointment Patient Language: Singaporean Prescriptions: New ibuprofen 800 mg tablet 800 mg PO TID Qty: 30 0RF acetaminophen 500 mg tablet 1,000 mg PO TID Qty: 60 0RF oxycodone 5 mg tablet 5 mg PO Q4H PRN (Reason: pain) Qty: 14 0RF Continued ferrous sulfate 325 mg (65 mg iron) tablet 325 mg PO DAILY sulfamethoxazole-trimethoprim [Bactrim DS] 800-160 mg tablet 1 tablet PO Q12H Qty: 20 0RF Follow-up/Referrals: Ally Suhkla MD [Primary Care Provider] -
[2024-11-05 12:40] LABS: BEDSIDEPREGUCG Negative (Negative)
[2024-11-05 12:51] LABS: Erythrocyte Sedimentation Rate 52 mm/hr (0-20)
[2024-11-05 12:54] LABS: Add Urine Microscopic? YES; Appearance Urine Cloudy (Clear); Bacteria Urine Rare /hpf; Bilirubin Urine Negative (Negative); Blood Urine 2+ (Negative); Color Urine Dark Yellow (Yellow); Glucose Urine UA Negative (Negative); Ketones Urine Trace mg/dL (Negative); Leukocyte Esterase Ur 1+ LEU/UL (Negative); Need Manual Microscopic Reviewed; Nitrate Urine Negative (Negative); Protein Urine 1+ mg/dL (Negative); RBC Urine 0-2 /hpf (0-2); Specific Grav Ur 1.029 (1.001-1.035); Squamous Epithelial Cell Urine Moderate /hpf (Few)
--- OUTSIDE RECORDS SUMMARY | 2024-11-05 13:05 | XMS_ITS | Clinical Summary ---
Author Organization [facility] Address [address] [place] [address] Phone Care Team Providers Care Postal Worker Name Role Phone Quintin Maria MD Primary [...] this topic Insurance MEDICAID [place] Care Teams Postal Worker Relationship Specialty Start Date End Date Quintin Maria MD [address] [facility] [address] [address] PCP - General Family Medicine 12/20/23
--- OUTSIDE RECORDS SUMMARY | 2024-11-05 13:05 | XMS_ITS | Referral Summary ---
Author Organization [facility] Phys[facility] [address] [place] [id number] Care Team Providers Care Zipper Setter Chainstitch Name Role Phone Quintin Maria MD Primary Care Provider Encounters Date Type Department Care Team Description 11/02/2024 7:31 PM CDT - 11/02/2024 8:27 PM CDT Emergency [facility] Emergency Department [address] [place] [address] Postoperative surgical complication involving genitourinary system associated with genitourinary procedure, unspecified complication (Primary Dx) Discharge Disposition: Discharge to home or self care from Last 3 Months Allergies No known active allergies Medications ibuprofen (ADVIL,MOTRIN) 800 mg tablet Take 800 mg by mouth 2 (two) times a day 01/14/2021 Active HYDROcodone-roula taminophen (NORCO) 5-325 mg per tabletIndicatio ns:Pain Take 1 tablet by mouth every 6 (six) hours as needed for pain for up to 10 doses 10 tablet 11/02/2024 Active cephalexin (KEFLEX) 500 mg capsule Take 1 capsule (500 mg total) by mouth 3 (three) times a day for 5 days 15 capsule 11/02/2024 Active Active Problems Problem Noted Date Diagnosed [...] file 05/01 Personal Safety Answer Date Recorded Have you ever been in or are you currently in a harmful physical or emotional relationship or is someone making you feel afraid or unsafe? 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 Gender Identity Not on file Sexual Orientation Not on file Last Filed Vital Signs Vital Sign Reading Time Taken Comments Blood Pressure 120/70 11/02/2024 7:08 PM CDT Pulse 84 11/02/2024 7:08 PM CDT Temperature 35.7 C (96.2 F) 11/02/2024 7:08 PM CDT Respiratory Rate 16 11/02/2024 7:08 PM CDT Oxygen Saturation 100% 11/02/2024 7:08 PM CDT Inhaled Oxygen Concentration - - Weight 102.1 kg (225 lb) 11/02/2024 7:08 PM CDT Height 180.3 cm (5' 11 ) 11/02/2024 7:08 PM CDT Body Mass Index 31.38 11/02/2024 7:08 PM CDT Plan of Treatment Not on file Insurance Care Teams Zipper Setter Chainstitch Relationship Specialty Start Date End Date Quintin Maria MD [address] [facility] [address] [place] [address] [address] PCP - General Family Medicine 11/02/24
--- OUTSIDE RECORDS SUMMARY | 2024-11-05 13:05 | XMS_ITS | Clinical Summary ---
Author Organization [facility] Physician Office Building [address] [place] [phone] Care Team Providers Care Sanitation Truck Driver Name Role Phone Quintin Maria MD Primary Care Provider Allergies No known active allergies Medications ibuprofen [...] CDT - 11/02/2024 8:27 PM CDT Emergency [facility] Emergency Department 1 [place] [address] Postoperative surgical complication involving genitourinary system associated with genitourinary procedure, unspecified complication (Primary Dx) Discharge Disposition: Discharge to home or self care from Last 3 Months Immunizations Immunization Administration [...] on file 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 Gender Identity Not on file Sexual Orientation Not on file Obstetrics History Para Term AB IAB SAB Ectopic Multiple Livin g Live Births 1 1 Date Outcome GA Total Labor Labor/2nd/3rd Weight Sex Type Anes PTL Michelle A1 A5 Name Clin Para Last Filed Vital Signs Vital Sign Reading [...] 11/02/2024 7:08 PM CDT Plan of Treatment Health Maintenance Due Date Last Done Comments Cervical Cancer Screening 2000 Depression Screening 2000 Hepatitis C Screening 2000 DTaP/Tdap/Td Vaccine (6 - Tdap) 10/26/2011 05/18/2006, 05/22/2002, 07/04/2001, Additional history exists HPV Vaccines (1 - 3-dose series) 10/26/2015 Regular Well Visit/Exam 18-64 2018 Influenza Vaccine (Season Ended) 2025 Hepatitis B Screening Completed 09/20/2001 , 01/24/2001, 2000 Pneumococcal vaccine <65 Completed 004, 07/04/2001, 03/31/2001, Additional history exists Varicella Vaccines Completed 05/18/2006, 04/21/2004 Insurance [facility] Care Teams Sanitation Truck Driver Relationship Specialty Start Date End Date Quintin Maria MD [address] [facility] [address] [address] PCP - General Family Medicine 11/02/24
--- OUTSIDE RECORDS SUMMARY | 2024-11-05 14:06 | XMS_ITS | Referral Summary ---
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
--- OUTSIDE RECORDS SUMMARY | 2024-11-05 14:06 | XMS_ITS | Clinical Summary ---
Author Organization [facility] Address [address] [place] [address] Phone Care Team Providers Care Traffic Engineering Technician Name Role Phone Quintin Maria MD Primary [...] this topic Insurance [place]ICAID [place] Care Teams Traffic Engineering Technician Relationship Specialty Start Date End Date Quintin Maria MD 2 [facility] [address] [address] PCP - General Family Medicine 12/20/23
--- OUTSIDE RECORDS SUMMARY | 2024-11-05 14:06 | XMS_ITS | Clinical Summary ---
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
[2024-11-05 14:55] VITALS: BP 130/74; PULSE 76; RESP 18; TEMP 37.1; O2SAT 100
== END 2024-11-05 14:57 | disposition home or self-care (01) ==
PROVIDERS: Emergency Provider Physician Assistant; PCP Obstetrics & Gynecology
DX: N76.2 Acute vulvitis (principal); Z87.891 Personal history of nicotine dependence
CPT/HCPCS: 36415; 72193; 80053; 81001; 81025; 85025; 85652; 86140; 99284; Q9967

== ENCOUNTER 2025-03-20 16:11 | Outpatient (CLI) | payer OTHER, SELFPAY ==
--- OUTSIDE RECORDS SUMMARY | 2025-03-20 16:15 | XMS_ITS | Clinical Summary ---
Author Organization [facility] Physician Office Building [address] [place] [phone] Care Team Providers Care Personal Banker Name Role Phone No, Physician Primary Care Provider [phone] Allergies No known active allergies Medications ibuprofen (ADVIL,MOTRIN) 800 mg tablet Take 800 mg by mouth 2 (two) times a day 01/14/2021 Active HYDROcodone-acet aminophen (NORCO) 5-325 mg per tabletIndication s:Pain Take 1 tablet by mouth every 6 (six) hours as needed for pain for up to 10 doses 10 tablet 11/02/2024 Active Active Problems Problem Noted Date [...] on file 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 Gender Identity Not on file Sexual Orientation [...] 7:08 PM CDT Height 180.3 cm (5' 11) 11/02/2024 7:08 PM CDT Body Mass Index 31.38 11/02/2024 7:08 PM CDT Plan of Treatment Health Maintenance Due Date Last Done Comments Cervical Cancer Screening 2000 Depression Screening 2000 Hepatitis C Screening 2000 DTaP/Tdap/Td Vaccine (6 - Tdap) 10/26/2011 05/18/2006, 05/22/2002, 07/04/2001, Additional history exists HPV Vaccines (1 - 3-dose series) 10/26/2015 Regular Well Visit/Exam 18-64 2018 Influenza Vaccine (#1) 2025 Hepatitis B Screening Completed 09/20/2001 , 01/24/2001, 2000 Pneumococcal vaccine <65 Completed 004, 07/04/2001, 03/31/2001, Additional history exists Varicella Vaccines Completed 05/18/2006, 04/21/2004 Insurance [facility] Care Teams Personal Banker Relationship Specialty Start Date End Date No, Physician PCP - General 11/29/24
--- OUTSIDE RECORDS SUMMARY | 2025-03-20 16:15 | XMS_ITS | Clinical Summary ---
Author Organization [facility] Address [address] [place] [address] Phone Care Team Providers Care Instructor Dancing Name Role Phone Quintin Maria MD Primary Care Provider Allergies Active Allergy Reactions Criticality Noted Date Comments Docusate Rash 03/16/2024 Medications naproxen (NAPROSYN) 500 MG Tablet Take 1 Tablet by mouth 2 times daily as needed for Mild or more severe pain. 20 Tablet 4 Active cyclobenzaprin e (FLEXERIL) 10 MG Tablet Take 1 Tablet by mouth nightly as needed for Muscle spasms for up to 14 days. 14 Tablet 5 03/25/20 25 Active naproxen (NAPROSYN) 500 MG Tablet Take 1 Tablet by mouth 2 times daily as needed for Mild or more severe pain. 20 Tablet 5 Active naproxen (NAPROSYN) 500 MG Tablet Take 1 Tablet by mouth 2 times daily as needed for Mild or more severe pain. 20 Tablet 5 03/11/20 25 Discontinued cyclobenzaprin e (FLEXERIL) 10 MG Tablet Take 1 Tablet by mouth nightly as needed for Muscle spasms for up to 14 days. 14 Tablet 5 03/11/20 25 Discontinued Encounters Date Type Department Care Team Description 03/11/2025 7:34 PM CDT - 03/11/2025 9:04 PM CDT Emergency [facility] Emergency 1 [place] [address] Madalyn Gibbons, RECORDS ANALYSIS MANAGER, IRRIGATION EQUIPMENT REMOVER Acute cervical myofascial strain, initial encounter Discharge Disposition: Discharged to home or Selfcare 03/11/2025 Travel from Last 3 Months Social History Tobacco Use Types Packs/Day Years Used Date Smoking Tobacco: Never Assessed Comments Unknown Sex and Gender Information Value Date Recorded Sex Assigned at Not on file Legal Sex Female 9:34 AM CDT Gender Identity Not on file Sexual Orientation Not on file Last Filed Vital Signs Vital Sign Reading Time Taken Comments Blood Pressure 120/65 03/11/2025 7:08 PM CDT Pulse 64 03/11/2025 7:08 PM CDT Temperature 36.5 C (97.7 F) 03/11/2025 7:08 PM CDT Respiratory Rate 17 03/11/2025 7:08 PM CDT Oxygen Saturation 100% 03/11/2025 7:08 PM CDT Inhaled Oxygen Concentration - - Weight 95.3 kg (210 lb) 03/11/2025 7:08 PM CDT Height 180.3 cm (5' 11) 03/11/2025 7:08 PM CDT Body Mass Index 29.29 03/11/2025 7:08 PM CDT Plan of Treatment Health Maintenance Due Date Last Done Comments Hepatitis C Virus (HCV) Screening 2000 Human Papillomavirus (HPV) Immunization (1 - 3-dose series) 10/26/2015 Pap Smear 2021 SARS-COV-2 Immunization ( season) 2024 Influenza Immunization (#1) 2025 Respiratory Syncytial Virus (RSV) Immunization (Adult) (1 - 1-dose 75+ series) 10/26/2075 Hepatitis B Immunization Completed 002, 01/24/2001, 2000 Pneumococcal Immunization Combined Aged Out 04/21/2004, 07/04/2001, 03/31/2001, Additional history exists No longer eligible based on patient's age to complete this topic Meningococcal B Immunization Discontinued 03/02/2019 Meningococcal Immunization (ACWY) Completed 03/02/2019 TdaP Immunization Completed 08/27/2024 Rotavirus Immunization Aged Out No lo nger eligible based on patient's age to complete this topic Procedures Procedure Name Priority Date/Time Associated Diagnosis Comments XR CERVICAL SPINE LIMITED 2 OR 3 VIEWS (3V OR LESS) STAT 03/11/2025 7:36 PM CDT from Last 3 Months Results * XR CERVICAL SPINE LIMITED 2 OR 3 VIEWS (3V OR LESS) (03/11/2025 7:36 PM CDT) Anatomical Region Laterality Modality Spine, C-spine N/A Digital Radiogra phy 03/11/2025 8:10 PM CDT Impressions 03/11/2025 8:13 PM CDT IMPRESSION: No acute spinal abnormality. Narrative 03/11/2025 8:13 PM CDT EXAM DESCRIPTION: XR CERVICAL SPINE LIMITED 2 OR 3 VIEWS (3V OR LESS) REASON FOR STUDY: neck pain primarily on left side after jumping off a diving board earlier today. Patient states she did not dive in head first. No loss of ROM in left arm. TECHNIQUE: 5 radiographic view(s) of the cervical spine. COMPARISON: None available. FINDINGS: ALIGNMENT: Slight reversal of the normal cervical lordosis. Mild levoconvex curvature of the cervical spine. Osseous alignment is otherwise maintained. VERTEBRAE: Vertebral bodies of normal height. No acute fracture. Mild facet joints are unremarkable. DISCS: The disc spaces are relatively preserved. SOFT TISSUES: Within normal limits. THIS IS AN ELECTRONICALLY VERIFIED FINAL REPORT 03/11/2025 8:10 PM - Electronically signed by Husam Jones M.D. MF: [email or web address] Report ID: [id number] Reading Location: [id number] Procedure Note Husam Jones, DO - 03/11/2025 EXAM DESCRIPTION: XR CERVICAL SPINE LIMITED 2 OR 3 VIEWS (3V OR LESS) REASON FOR STUDY: neck pain primarily on left side after jumping off a diving board earlier today. Patient states she did not dive in head first. No loss of ROM in left arm. TECHNIQUE: 5 radiographic view(s) of the cervical spine. COMPARISON: None available. FINDINGS: ALIGNMENT: Slight reversal of the normal cervical lordosis. Mild levoconvex curvature of the cervical spine. Osseous alignment is otherwise maintained. VERTEBRAE: Vertebral bodies of normal height. No acute fracture. Mild facet joints are unremarkable. DISCS: The disc spaces are relatively preserved. SOFT TISSUES: Within normal limits. THIS IS AN ELECTRONICALLY VERIFIED FINAL REPORT 03/11/2025 8:10 PM - Electronically signed by Husam Jones M.D. MF: [email or web address] Report ID: [id number] Reading Location: [id number] IMPRESSION: No acute spinal abnormality. Madalyn Gibbons APRN, FELIZ IMG DIAGNOSTIC ORDERA BLES Final Result from Last 3 Months Insurance [place]ICAID [place] Care Teams Instructor Dancing Relationship Specialty Start Date End Date Quintin Maria MD [address] [place] [address] [address] PCP - General Family Medicine 12/20/23
[2025-03-20 17:05] LABS: Beta HCG Quantitative < 2.39 mIU/ML
== END 2025-03-20 16:12 | disposition home or self-care (01) ==
LOC: ANHLAB 16:13
PROVIDERS: Visit Provider Obstetrics & Gynecology
DX: N92.6 Irregular menstruation, unspecified (principal)
CPT/HCPCS: 36415; 84702

== ENCOUNTER 2025-06-18 13:30 | Outpatient (RCR) | payer OTHER, SELFPAY ==
--- NOTE | 2025-05-08 15:25 | OPREHPOC ---
Outpatient Therapy Plan of Care This is a Multidisciplinary Plan of Care that may contain components documented by all disciplines (PT, OT, and ST.) PT Problem 1 PT Problem #1 Knowledge Deficit PT Goal 1 Goal / Goal Update 1. Patient will perform independent HEP Target Visit 2 PT Problem 2 PT Problem #2 Pain PT Goal 1 Goal / Goal Update 1. No pain with palpation of pelvic floor 2. Pain with typical activities no higher than 2/ 10 Target Visit 8 PT Problem 3 PT Problem #3 Impaired Strength PT Goal 1 Goal / Goal Update 1. Improve hip strength to 5/5 in all planes Target Visit 8 PT Problem 4 PT Problem #4 Impaired Flexibility PT Goal 1 Goal / Goal Update 1. Patient will demonstrate normal pelvic floor muscle tone Target Visit 8 PT Problem 5 PT Problem #5 Impaired Functional ADLs PT Goal 1 Goal / Goal Update 1. Patient will report urinary incontinence no more than 1 time every 2 weeks 2. Patient will be able to hold urge to void at least 30 minutes Target Visit 8
--- NOTE | 2025-05-08 15:26 | PTOPEVAL1 ---
Assessment and note entered by Sunitha Ruth DPT Evaluation Information Assessment Status Evaluation ICD-10 Condition Codes (PT) Weakness R53.1,Pelvic and perineal pain R10.2,Urge incontinence N39.41,Mixed incontinence N39.46, Stress incontinence N39.3,Separation of muscle ( nontraumatic) M62.08 Subjective Information Pt has endometriosis and is 7 months from vaginal delivery, 2 second degree tears. First and only . Voids less than 10 times a day, and once at night. Urinary incontinence every day with cough or sneeze and has been for at least several months. Denies pain with urination. Can hold urge to void only a few seconds and also gets urge incontinence. Has had to change clothes and wears pads often. BM daily but also reports fecal urgency. Denies fecal incontinence or pain. Pt gets abdominal pain/discomfort, highest 5/10 and lowest 0/10. Has had some pelvic pain with intercourse as well. 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 Pt reports frustration about having to void so urgently and needing to change clothes. Patient goal: feel comfortable again, not leak or perales to the bathroom Return to MD not currently scheduled. Reported Pain Level Pain Score 0: Self Report Assessment PT Clinical Summary The patient is presenting to skilled therapy at 7 months and with history of endometriosis. She reports pelvic pain as well as urinary urgency and incontinence. She presents with increased pelvic floor muscle tone, inability to contract/relax, and pain with palpation, in addition to overall decreased hip and abdominal strength and diastasis recti. These impairments are contributing to her pain, urinary urgency, and daily incontinence which are impacting typical activities. She will highly benefit from skilled therapy to address her impairments and to restore full function. Plan of Care Interventions Electrical Stimulation,Hot Pack/Cold Pack,Manual Therapy,Neuro Re-education,Patient/Caregiver Education,Therapeutic Activities,Therapeutic Exercise PT Services Indicated Yes Treatment Frequency and 1 time a week for 7-8 visits Duration These treatments will address the objective and functional deficits as defined above. The patient will be advanced safely and appropriately in order for the patient to progress towards his/her prior level of function. Additional exercises will be introduced and as well as a comprehensive home exercise program upon discharge, if needed, ?to ensure carryover of functional gains achieved in the clinic. This treatment plan has been reviewed and agreement upon by the patient.
--- NOTE | 2025-06-06 12:49 | PCPTNOTE ---
Patient cancelled appointment 06/06/25 due to no transportation. Will be in next week.
--- NOTE | 2025-06-18 13:59 | PTOPPROG ---
Assessment and note entered by Sunitha Ruth DPT Evaluation Information Assessment Status Progress ICD-10 Condition Codes (PT) Weakness R53.1,Pelvic and perineal pain R10.2,Urge incontinence N39.41,Mixed incontinence N39.46, Stress incontinence N39.3,Separation of muscle ( nontraumatic) M62.08 Subjective Information Pt reports overall feeling better since starting therapy, feels her bladder control is better and feels stronger. Pain has also improved. Highest pain in the last week 4/10 and lowest 0/10. Denies recent pain with intercourse. Urinary incontinence once a week now. Can hold urge to void up to 10 minutes at a time. Voiding 6-7 times a day and none at night. Assessment PT Clinical Summary The patient has made good progress in therapy and reports decreased pain, decreased urinary incontinence to 1 time a week, and improved ability to hold urge to void up to 10 minutes. She demonstrates improved hip and abdominal strength, improved diastasis recti, and improved pelvic floor muscle tone. Due to her progress but continued pain, incontinence, and urgency, she will benefit from further therapy to restore full function. Plan of Care Interventions Electrical Stimulation,Hot Pack/Cold Pack,Manual Therapy,Neuro Re-education,Patient/Caregiver Education,Therapeutic Activities,Therapeutic Exercise PT Services Indicated Yes Treatment Frequency and 1 visit every other week x 3 visits Duration These treatments will address the objective and functional deficits as defined above. The patient will be advanced safely and appropriately in order for the patient to progress towards his/her prior level of function. Additional exercises will be introduced and as well as a comprehensive home exercise program upon discharge, if needed, ?to ensure carryover of functional gains achieved in the clinic. This treatment plan has been reviewed and agreement upon by the patient.
--- NOTE | 2025-06-18 13:59 | OPREHPOC ---
Outpatient Therapy Plan of Care This is a Multidisciplinary Plan of Care that may contain components documented by all disciplines (PT, OT, and ST.) PT Problem 1 PT Problem #1 Knowledge Deficit PT Goal 1 Goal / Goal Update 1. Patient will perform independent HEP Target Visit 2 Progress Met PT Problem 2 PT Problem #2 Pain PT Goal 1 Goal / Goal Update 1. No pain with palpation of pelvic floor 2. Pain with typical activities no higher than 2/ 10 update 06/18/25 1. no change 2. 4/10 highest Target Visit 11 Progress Partially Met PT Problem 3 PT Problem #3 Impaired Strength PT Goal 1 Goal / Goal Update 1. Improve hip strength to 5/5 in all planes update 06/18/25 1. abduction met, extension 4+/5 Target Visit 11 Progress Partially Met PT Problem 4 PT Problem #4 Impaired Flexibility PT Goal 1 Goal / Goal Update 1. Patient will demonstrate normal pelvic floor muscle tone update 06/18/25 1. improved to mild Target Visit 11 Progress Partially Met PT Problem 5 PT Problem #5 Impaired Functional ADLs PT Goal 1 Goal / Goal Update 1. Patient will report urinary incontinence no more than 1 time every 2 weeks 2. Patient will be able to hold urge to void at least 30 minutes update 06/18/25 1. one time a week 2. 10 minutes Target Visit 11 Progress Partially Met
--- NOTE | 2025-07-05 14:44 | PCPTNOTE ---
Patient did not show up for appointment 07/05/25, called patient but voicemail not set up.
--- NOTE | 2025-07-16 15:27 | PCPTNOTE ---
Patient did not show up for appointment 07/16/25.
--- NOTE | 2025-07-30 15:20 | PCPTNOTE ---
Patient no showed 07/30/25. Her case will be discharged.
--- NOTE | 2025-07-30 15:22 | PTOPDC ---
Assessment and note entered by Sunitha Ruth DPT Evaluation Information Assessment Status Discharge - Pt Not Present ICD-10 Condition Codes (PT) Weakness R53.1,Pelvic and perineal pain R10.2,Urge incontinence N39.41,Mixed incontinence N39.46, Stress incontinence N39.3,Separation of muscle ( nontraumatic) M62.08 Subjective Information - Assessment PT Clinical Summary The patient last attended therapy on 06/18/25 and has since no showed 3 appointments. Per attendance policy, her case will be discharged. Plan of Care PT Services Indicated No
== END 2025-07-30 16:10 | disposition home or self-care (01) ==
LOC: ANHPT 13:30
PROVIDERS: PCP Family Medicine; Visit Provider Obstetrics & Gynecology
DX: M99.05 Segmental and somatic dysfunction of pelvic region (principal)
CPT/HCPCS: 97110; 97112; 97140; 97161; 97530

== ENCOUNTER 2025-07-15 18:18 | Emergency (ER) | payer OTHER, SELFPAY ==
[2025-07-15 18:22] VITALS: BP 114/70; PULSE 81; RESP 20; TEMP 37.1; O2SAT 100
--- OUTSIDE RECORDS SUMMARY | 2025-07-15 18:36 | XMS_ITS | Clinical Summary ---
Author Organization [facility] Address [address] [place] [address] Phone Care Team Providers Care Vascular Ultrasound Technologist Name Role Phone Quintin Maria MD Primary Care Provider Allergies Active Allergy Reactions Criticality Noted Date Comments Docusate Rash 03/16/2024 Medications naproxen (NAPROSYN) 500 MG Tablet Take 1 Tablet by mouth 2 times daily as needed for Mild or more severe pain. 20 Tablet 12/20/2023 Active naproxen (NAPROSYN) 500 MG Tablet Take 1 Tablet by mouth 2 times daily as needed for Mild or more severe pain. 20 Tablet 03/11/2025 Active Social History Tobacco Use Types Packs/Day [...] - 3-dose series) 10/26/2015 Pap Smear 2021 Influenza Immunization (#1) 2025 SARS-COV-2 Immunization (2024- season) 2025 Respiratory Syncytial Virus (RSV) Immunization (Adult) (1 - 1-dose 75+ series) 10/26/2075 Hepatitis B Immunization Completed 002, 01/24/2001, 2000 Pneumococcal Immunization Combined Aged Out 04/21/2004, 07/04/2001, 03/31/2001, Additional history exists No longer eligible based on patient's age to complete this topic Varicella Immunization Completed 05/18/2006, 2003 Meningococcal B Immunization Discontinued 03/02/2019 Meningococcal Immunization (ACWY) Completed 03/02/2019 TdaP Immunization Completed 08/27/2024 Rotavirus Immunization Aged Out No lo nger eligible based on patient's age to complete this topic Insurance [place]ID [place] Care Teams Vascular Ultrasound Technologist Relationship Specialty Start Date End Date Quintin Maria MD [address] [place] [phone] PCP - General Family Medicine 12/20/23
--- OUTSIDE RECORDS SUMMARY | 2025-07-15 18:36 | XMS_ITS | Clinical Summary ---
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
--- NOTE | 2025-07-15 19:09 | ED_ITS ---
HPI - Skin/Abscess/Foreign Bdy General Chief complaint: Skin/Abscess/Foreign Body Stated complaint: infected hair in armpit Time Seen by Provider: 07/15/25 19:10 Source: patient, RN notes reviewed and old records reviewed Mode of arrival: ambulatory Limitations: no limitations History of Present Illness HPI narrative: 24 year old female presents to [facility] care with complaints of raised lesion to left axilla for the past 2 days with no drainage noted. Patient reports that she shaved her armpits yesterday and she noted raised pimple like lesion to her left axilla today with some tenderness. Patient reports that she has been applying warm compresses to left axilla skin lesion area. Patient reports no fevers chills or any sweats denies any drainage from lesion area of left axilla. MD complaint: abscess/boil Onset (ago): day(s) (2) Location: LUE (axilla) Severity scale (1-10): 4 Treatments prior to arrival: other (warm compresses to left axilla) Related Data Home Medications ?Medication ?Instructions ?Recorded ?Confirmed ?Last Taken ?Type etonogestrel 68 mg subdermal 1 implant subdermal ONCE 03/21/25 03/21/25 Unknown History implant (Nexplanon) Allergies Allergy/AdvReac Type Severity Reaction Status Date / Time docusate (From Colace) Allergy Mild Hives Verified 07/15/25 18:30 Review of Systems Review of Systems: CONSTITUTIONAL: Denies fever, chills, or sweats. CARDIOVASCULAR: Denies chest pain, palpitations, or edema. RESPIRATORY: Denies cough or dyspnea. GASTROINTESTINAL: Denies abdominal pain, nausea, vomiting SKIN: Reports minimal redness, with small raised lesion to left axilla with no pustule or vesicle noted approximately .025cm diameter. Denies purulent drainage, no fluctuation of tissue, minimal warmth MUSCULOSKELETAL: Denies myalgia. NEUROLOGIC: Denies headache, numbness All systems reviewed & are unremarkable except as noted in HPI and below PMFSH Past Medical History Medical History Pelvic congestion syndrome Suppression of menses Encounter for surveillance of implantable subdermal contraceptive Nexplanon insertion Endometriosis Anxiety Surveillance for Depo-Provera contraception Healthy adult Surgical History Surgical History History of ovarian cystectomy Laparoscopic ovarian cystectomy Family History Family History Grandparent Malignant tumor of stomach Other Skin cancer Other Acute myocardial infarction Social History Social History Smoking status: Former smoker Tobacco type: e-cigarettes/vaping Alcohol intake: never Substance use: current Substance use type: marijuana Current Housing: Decline to Answer Concerned About Future Housing: Decline to Answer Difficulty Paying Gas/Electric Bills: Decline to Answer Difficulty Paying for Meds: Decline to Answer Currently Unemployed: Decline to Answer Education: Decline to Answer Difficulty w/ Childcare or Family Care: Decline to Answer Living arrangements: with family Occupation/Education: occupation Additional occupation/education comments: [employer] Gender identity (if verbalized by the patient): Female Sexual Orientation (if Verbalized by the Patient): Straight or Heterosexual Spiritual care concerns: No Comments At time of signature, agree with nursing past medical, surgical, social and family history. There is no relevant family history pertinent to the presenting complaint Exam Narrative: GENERAL: Well-appearing, well-nourished, and in no acute distress. HEAD: Normocephalic, atraumatic. EYES: PERRLA and EOMI. ENT: Nares clear, no rhinorrhea or epistaxis. Mucous membranes moist. NECK: Supple.no lymphadenopathy CHEST: Clear to auscultation. No respiratory distress. SAO2 100% on room air HEART: Regular rate and rhythm. No murmur heard. Normal peripheral pulses. ABDOMEN: Soft, nontender, nondistended, normal active bowel sounds. EXTREMITIES: Normal range of motion. No edema. SKIN: Warm, dry. Erythema, induration, tenderness, minimal warmth to 0.25cm diameter lesion of left axilla, no drainage or fluctuation of tissue, no vesicles or pustule noted. NEURO: No focal deficits. Alert and oriented x3. Course Course Level of Care: Express Care Visit Vital Signs Vital signs: Vital Signs Temperature 37.1 C 07/15/25 18:22 Pulse Rate 81 07/15/25 18:22 Respiratory Rate 20 07/15/25 18:22 Blood Pressure 114/70 07/15/25 18:22 Pulse Oximetry 100 07/15/25 18:22 Oxygen Delivery Room Air 07/15/25 18:22 Temperature 37.1 C 07/15/25 18:22 Pulse Rate 81 07/15/25 18:22 Respiratory Rate 20 07/15/25 18:22 Blood Pressure 114/70 07/15/25 18:22 Pulse Oximetry 100 07/15/25 18:22 Oxygen Delivery Room Air 07/15/25 18:22 reviewed MDM MDM Narrative Medical decision making narrative: 24 year old female with complaints of raised tender lesion to her left axilla without fluctuation or drainage.Patient is appropriate for outpatient treatment and follow up. Will start patient on antibiotic therapy and wound care instructions with patient to follow up with PCP. Anticipatory guidance and reasons to seek care in ED reviewed with patient with understandng voiced. Differential Diagnosis Differential Diagnosis: Differential diagnostic considerations for skin/abscess/foreign body issues include abscess of skin or subcutaneous tissue, viral exanthem, dermatophytosis, urticaria, herpes zoster, allergic reaction to drug, cellulitis, eczema, insect bites, impetigo, contact dermatitis, vasculitis. Critical Care Time Critical Care Time Critical Care Time: No Discharge Plan Discharge Clinical Impression: Cutaneous abscess of left axilla Patient Disposition: Home Condition: Stable Instructions: Antibiotic Form, Abscess (ED) Additional Instructions: warm compresses to the left axilla 3 times daily apply mupirocin ointment to left axilla twice daily watch for any increasing infection--redness, swelling, drainage Tylenol or ibuprofen for any fever or pain per package instructions follow up with PCP in 7-10 days for a wound check recheck if develop fever, chills, increasing symptom Go to the ER if your symptoms become worse of if ANY new symptoms develop antibiotic as prescribed take all doses If your symptoms persist, change or worsen significantly before you can contact your personal physician then please, without delay, go to the emergency department for further evaluation. Follow-up with PCP in 7-10 days or sooner if needed Patient Language: French Prescriptions: New mupirocin [Centany] 2 % ointment 1 applic topical BID Qty: 22 0RF cephalexin 500 mg capsule 500 mg PO Q8H 7 Days Qty: 21 0RF No Action Nexplanon 68 mg implant 1 implant subdermal ONCE Rx Instructions: as a single dose Follow-up/Referrals: PHYSICIAN,SITE WORKER [Primary Care Provider, Internal Medicine] Time of Disposition: 19:19 Quality [place] Coma Scale Eyes: Open Verbal: Oriented and Alert Motor: Follows Commands [place] Coma Total Score: 15
== END 2025-07-15 19:20 | disposition home or self-care (01) ==
PROVIDERS: Emergency Provider Registered Nurse
DX: L02.412 Cutaneous abscess of left axilla (principal); Z87.891 Personal history of nicotine dependence; F12.90 Cannabis use, unspecified, uncomplicated; N80.9 Endometriosis, unspecified
CPT/HCPCS: 99213; G0463